=== PATIENT | female | born 1930 | race Caucasian/White ===

== ENCOUNTER 2016-05-22 16:04 | Emergency (ER) | payer MEDICARE, OTHER ==
[2016-05-22] MEDS ORDERED: ASPIRIN 81 MG TABLET, CHEWABLE PO ONE (16:44)
--- NOTE | 2016-05-22 16:56 | ER Document Report ---
ED Medical Screen (RME) - General Chief Complaint: Chest Pain Stated Complaint: CHEST PAIN Mode of Arrival: Ambulatory Information source: Patient Notes: 86-year-old female presents to the emergency department complaining of bilateral upper abdomen/lower chest pain since yesterday. Reports has tried antacid medication at home without improvement. Reports associated mild nausea without fever, vomiting, or shortness of breath. I have greeted and performed a rapid initial assessment of this patient. A comprehensive ED assessment and evaluation of the patient, analysis of test results and completion of the medical decision making process will be conducted by additional ED providers. TRAVEL OUTSIDE OF THE [place] IN LAST 30 DAYS: No - Related Data Allergies/Adverse Reactions: No Known Allergies Allergy (Verified 05/22/16 16:41) Past Medical History - Social History Chew tobacco use (# tins/day): No Frequency of alcohol use: None Drug Abuse: None - Past Medical History Cardiac Medical History: Reports: Hx Coronary Artery Disease, Hx Hypercholesterolemia, Hx Hypertension Denies: Hx Heart Attack Pulmonary Medical History: Reports: Hx Asthma, Hx Pneumonia Denies: Hx Bronchitis, Hx COPD Neurological Medical History: Denies: Hx Cerebrovascular Accident, Hx Seizures Renal/ Medical History: Denies: Hx Peritoneal Dialysis GI Medical History: Reports: Hx Gastroesophageal Reflux Disease Musculoskeltal Medical History: Reports Hx Arthritis Past Surgical History: Reports: Hx Appendectomy, Hx Cardiac Catheterization - stent x2, Hx Coronary Stent - 2006 AND 2008, Hx Hysterectomy - Immunizations Hx Diphtheria, Pertussis, Tetanus Vaccination: Yes - 2011 Physical Exam - Vital signs Vitals: Temp Pulse Resp BP Pulse Ox 98.0 F 61 18 156/76 H 94 05/22/16 16:38 05/22/16 16:38 05/22/16 16:38 05/22/16 16:38 05/22/16 16:38 - General General appearance: Appears well, Alert In distress: None - Respiratory Respiratory status: No respiratory distress Breath sounds: Normal - Cardiovascular Rhythm: Regular Pulses: Normal: Radial Normal capillary refill: Yes Course - Vital Signs Vital signs: Temp Pulse Resp BP Pulse Ox 98.0 F 61 18 156/76 H 94 05/22/16 16:38 05/22/16 16:38 05/22/16 16:38 05/22/16 16:38 05/22/16 16:38
[2016-05-22 18:34] LABS: ABSOLUTE BASOPHILS # (AUTO) 0.1 10^3/uL (0.0-0.2); ABSOLUTE EOSINOPHILS # (AUTO) 0.3 10^3/uL (0.0-0.6); ABSOLUTE LYMPHOCYTES (AUTO) 3.3 10^3/uL (0.5-4.7); BASOPHILS % (AUTO) 0.7 % (0-2); EOSINOPHILS % (AUTO) 3.9 % (0-6); HEMATOCRIT 40.1 % (36.0-47.0); HEMOGLOBIN 13.5 g/dL (12.0-15.5); HGB HCT DIFFERENCE 0.4; LYMPHOCYTES % (AUTO) 38.2 % (13-45); MEAN CORPUSCULAR HEMOGLOBIN 30.2 pg (27.0-33.4); MEAN CORPUSCULAR HGB CONC 33.6 g/dL (32.0-36.0); MEAN CORPUSCULAR VOLUME 90 fl (80-97); MONOCYTES % (AUTO) 11.4 % (3-13); RED BLOOD COUNT 4.46 10^6/uL (3.72-5.28); RED CELL DISTRIBUTION WIDTH 13.7 % (11.5-14.0); SEGMENTED NEUTROPHILS % (AUTO) 45.8 % (42-78); WHITE BLOOD COUNT 8.7 10^3/uL (4.0-10.5)
[2016-05-22 18:45] LABS: APPEARANCE,URINE CLEAR; BILIRUBIN,URINE NEGATIVE (NEGATIVE); GLUCOSE, URINE NEGATIVE (NEGATIVE); KETONES,URINE NEGATIVE (NEGATIVE); LEUKOCYTE ESTERASE,URINE LARGE (NEGATIVE); NITRITE,URINE NEGATIVE (NEGATIVE); PROTEIN,URINE NEGATIVE (NEGATIVE); URINE SPECIFIC GRAVITY 1.005; UROBILINOGEN,URINE NEGATIVE mg/dL (<2.0)
[2016-05-22 18:59] LABS: ALANINE AMINOTRANSFERASE 38 U/L (9-52); ALBUMIN 4.7 g/dL (3.5-5.0); ALKALINE PHOSPHATASE 71 U/L (38-126); ANION GAP 12 (5-19); ASPARTATE AMINO TRANSFERASE 29 U/L (14-36); BILIRUBIN,TOTAL 0.5 mg/dL (0.2-1.3); BLOOD UREA NITROGEN 12 mg/dL (7-20); CALCIUM 10.2 mg/dL (8.4-10.2); CARBON DIOXIDE 30 mmol/L (22-30); CHLORIDE 101 mmol/L (98-107); CREATINE KINASE 76 U/L (30-135); CREATININE RESULT 0.76 mg/dL (0.52-1.25); GLUCOSE 97 mg/dL (75-110); LIPASE 81.7 U/L (23-300); POTASSIUM 4.2 mmol/L (3.6-5.0); SODIUM 142.7 mmol/L (137-145); TOTAL PROTEIN 7.8 g/dL (6.3-8.2)
[2016-05-22 19:12] LABS: TROPONIN I < 0.012 ng/mL
--- NOTE | 2016-05-22 20:02 | EKG REPORT ---
SEVERITY:- ABNORMAL ECG - SINUS RHYTHM FIRST DEGREE AV BLOCK LEFT VENTRICULAR HYPERTROPHY ANTERIOR Q WAVES, POSSIBLY DUE TO LVH : Confirmed by: Elier Beard 22-May-2016 20:02:04
[2016-05-23] MEDS ORDERED: MAG HYDROX/AL HYDROX/SIMETH SUSP 30 ML UDCUP PO ONE (00:35)
[2016-05-23] MEDS ORDERED: LIDOCAINE 2% VISCOUS SOLN 20 ML UDCUP PO ONE (00:35)
[2016-05-23] MEDS ORDERED: METOCLOPRAMIDE HCL ORAL SOLN 10 MG/10 ML UDCUP PO ONE (00:35)
--- NOTE | 2016-05-23 01:55 | ER Document Report ---
ED General - General Chief Complaint: Chest Pain Stated Complaint: CHEST PAIN Mode of Arrival: Ambulatory Notes: Patient is an 86-year-old female with past medical history of hypertension and a prior appendectomy who presents complaining of chest pain and intermittent epigastric abdominal pain. Pain in her chest is described as a burning, pressure-like sensation. Unchanged since onset. Nothing improves or worsens her pain. States she's had similar symptoms in the past with reflux but states that this is more intense than normal. She tried taking Rolaids at home with moderate improvement of her pain. Nothing worsens the pain. She has not seen her primary care physician regarding today's concerns. She denies any associated nausea, vomiting, diaphoresis, shortness of breath, or syncope. She denies any prior history of aortic dissection, aortic aneurysm, pulmonary embolus, or DVT. TRAVEL OUTSIDE OF THE [place] IN LAST 30 DAYS: No - Related Data Allergies/Adverse Reactions: No Known Allergies Allergy (Verified 05/22/16 16:41) Past Medical History - General Information source: Patient - Social History Smoking Status: Never Smoker Chew tobacco use (# tins/day): No Frequency of alcohol use: None Drug Abuse: None Lives with: Family Family History: Reviewed & Not Pertinent Patient has suicidal ideation: No Patient has homicidal ideation: No - Past Medical History Cardiac Medical History: Reports: Hx Coronary Artery Disease, Hx Hypercholesterolemia, Hx Hypertension Denies: Hx Heart Attack Pulmonary Medical History: Reports: Hx Asthma, Hx Pneumonia Denies: Hx Bronchitis, Hx COPD Neurological Medical History: Denies: Hx Cerebrovascular Accident, Hx Seizures Renal/ Medical History: Denies: Hx Peritoneal Dialysis GI Medical History: Reports: Hx Gastroesophageal Reflux Disease Musculoskeltal Medical History: Reports Hx Arthritis Past Surgical History: Reports: Hx Appendectomy, Hx Cardiac Catheterization - stent x2, Hx Coronary Stent - 2006 AND 2008, Hx Hysterectomy - Immunizations Hx Diphtheria, Pertussis, Tetanus Vaccination: Yes - 2011 Hx Pneumococcal Vaccination: 04/02/11 Review of Systems - Review of Systems Notes: Constitutional: Negative for fever. HENT: Negative for sore throat. Eyes: Negative for visual changes. Cardiovascular: Positive for chest pain. Respiratory: Negative for shortness of breath. Gastrointestinal: Negative for abdominal pain, vomiting or diarrhea. Genitourinary: Negative for dysuria. Musculoskeletal: Negative for back pain. Skin: Negative for rash. Neurological: Negative for headaches, weakness or numbness. 10 point ROS negative except as marked above and in HPI. Physical Exam - Vital signs Vitals: Temp Pulse Resp BP Pulse Ox 98.0 F 61 18 156/76 H 94 05/22/16 16:38 05/22/16 16:38 05/22/16 16:38 05/22/16 16:38 05/22/16 16:38 Interpretation: Hypertensive Notes: PHYSICAL EXAMINATION: GENERAL: Well-appearing, well-nourished and in no acute distress. HEAD: Atraumatic, normocephalic. EYES: Pupils equal round and reactive to light, extraocular movements intact, sclera anicteric, conjunctiva are normal. ENT: nares patent, oropharynx clear without exudates. Moist mucous membranes. NECK: Normal range of motion, supple without lymphadenopathy LUNGS: Breath sounds clear to auscultation bilaterally and equal. No wheezes rales or rhonchi. HEART: Regular rate and rhythm without murmurs ABDOMEN: Soft, nontender, normoactive bowel sounds. No guarding, no rebound. No masses appreciated. EXTREMITIES: Normal range of motion, no pitting or edema. No cyanosis. NEUROLOGICAL: No focal neurological deficits. Moves all extremities spontaneously and on command. PSYCH: Normal mood, normal affect. SKIN: Warm, Dry, normal turgor, no rashes or lesions noted. Course - Re-evaluation Re-evalutation: 05/23/16 01:49 Presentation of chest pain in an otherwise well appearing patient. Low clinical suspicion for ACS given clinical history, exam, EKG without ST elevations or depressions, and negative troponin 2. HEART score less than or equal to 3. PE also seems unlikely given clinical history, absence of tachycardia or dyspnea. Will score 0. CXR without evidence of pneumothorax or pneumonia. No widened mediastinum. Aortic dissection also seems unlikely given history, symmetric pulses, CXR, and vitals. A bedside ultrasound of the right upper quadrant shows a normal gallbladder without any wall thickening, pericholecystic fluid or gallstones. Her laboratories do not suggest acute pancreatitis area and her clinical history is not consistent with an acute mesenteric ischemia and she does not have any major risk factors for this diagnosis beyond her age.At this time will discharge with return precautions and follow-up recommendations. Verbal discharge instructions given a the bedside and opportunity for questions given. Medication warnings reviewed. Patient is in agreement with this plan and has verbalized understanding of return precautions and the need for primary care follow-up in the next 24-72 hours. - Vital Signs Vital signs: Temp Pulse Resp BP Pulse Ox 97.7 F 62 15 144/65 H 96 05/22/16 22:59 05/22/16 22:59 05/23/16 02:00 05/23/16 00:01 05/23/16 02:00 - Laboratory Result Diagrams: 05/22/16 18:05 05/22/16 18:05 Laboratory results interpreted by me: 05/22/16 18:05 Ur Leukocyte Esterase LARGE H - Diagnostic Test Radiology reviewed: Image reviewed, Reports reviewed Radiology results interpreted by me: 05/23/16 01:51 Chest x-ray: No acute infiltrate. - EKG Interpretation by Me Additional EKG results interpreted by me: 05/23/16 01:55 Normal sinus rhythm. No ST elevations or depressions. Rate 67. QTC is 444. Discharge - Discharge Clinical Impression: Chest pain Qualifiers: Chest pain type: unspecified Qualified Code(s): R07.9 - Chest pain, unspecified Condition: Good Disposition: HOME, SELF-CARE Additional Instructions: You were seen today for chest pain. The exact cause of your pain is unclear. However, based on your cardiac enzyme testing, chest x-ray, and EKG it does not appear that it is from an immediately life-threatening cause at this time. Although your testing here is normal is critical that you follow-up with your primary care physician for continued evaluation of this chest pain and possible stress testing. I recommended you see your physician within the next 24-48 hours to be evaluated for consideration of a stress test. Please return to emergency department immediately if you have worsening of your chest pain, shortness of breath, vomiting, become unable to exert yourself due to pain or difficulty breathing, you pass out, or have any pain that radiates into your arms, jaw, or back. Please also return if you have any additional symptoms that are concerning to you. Referrals: HUY CHOUDHURY MD [Primary Care Provider] - Follow up tomorrow
[2016-05-23 02:19] VITALS: BP 149/78
== END 2016-05-23 02:19 | disposition home or self-care (01) ==
LOC: ER 16:04
DX: R07.9 Chest pain, unspecified (principal); I10 Essential (primary) hypertension; R10.13 Epigastric pain
CPT/HCPCS: 93005; 99285; 36415; 82553; 82550; 83690; 85025; 80053; 81001; 84484; 71020; 93010; A9270 ×2; J3490

== ENCOUNTER 2017-06-05 08:58 | Emergency (ER) | payer MEDICARE, OTHER ==
--- NOTE | 2017-06-05 10:01 | RADIOLOGY REPORT (SQ) ---
EXAM DESCRIPTION: CT HEAD WITHOUT COMPLETED DATE/TIME: 06/05/2017 9:53 am REASON FOR STUDY: fall , head injury COMPARISON: None. TECHNIQUE: Axial images acquired through the brain without intravenous contrast. Images reviewed wi th bone, brain and subdural windows. Images stored on PACS. All CT scanners at this facility use dose modulation, iterative reconstruction, and/or weight based d osing when appropriate to reduce radiation dose to as low as reasonably achievable (ALARA). [facility]: Dose Right [facility]: CareDose [facility]: Dose Right [facility]: Teradose 4D [facility]: [employer] [facility] RADIATION DOSE: CT Rad equipment meets quality standard of care and radiation dose reduction techniq ues were employed. CTDIvol: 64.6 mGy. DLP: 1034 mGy-cm. mGy. LIMITATIONS: None. FINDINGS: VENTRICLES: Prominent. CEREBRUM: No masses. No hemorrhage. No midline shift. 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 Areas of low density in the white matter most likely due to chronic micro-vascular ischemi c change. No evidence for acute infarction. CEREBELLUM: No masses. No hemorrhage. No alteration of density. No evidence for acute infarction. EXTRAAXIAL SPACES: Mild age-related involutional change. No fluid collections. No masses. ORBITS AND GLOBE: No intra- or extraconal masses. Normal contour of globe without masses. CALVARIUM: No fracture. PARANASAL SINUSES: No fluid or mucosal thickening. SOFT TISSUES: No mass or hematoma. OTHER: No other significant finding. IMPRESSION: No acute abnormality in the brain. EVIDENCE OF ACUTE STROKE: NO. TECHNICAL DOCUMENTATION: JOB ID: [id number] Quality ID # [id number]: Final reports with documentation of one or more dose reduction techniques (e.g., Au tomated exposure control, adjustment of the mA and/or kV according to patient size, use of iterative reconstruction technique) 2010 [employer]- All Rights Reserved Reading location - IP/workstation name: [facility]-[email or web address]
--- NOTE | 2017-06-05 10:12 | RADIOLOGY REPORT (SQ) ---
EXAM DESCRIPTION: CT CERVICAL SPINE WITHOUT COMPLETED DATE/TIME: 06/05/2017 9:56 am REASON FOR STUDY: fall , head injury COMPARISON: None. TECHNIQUE: Axial images acquired through the cervical spine without intravenous contrast. Images re viewed with lung, soft tissue and bone windows. Reconstructed coronal and sagittal MPR images review ed. Images stored on PACS. All CT scanners at this facility use dose modulation, iterative reconstruction, and/or weight based d osing when appropriate to reduce radiation dose to as low as reasonably achievable (ALARA). [facility]: Dose Right [facility]: CareDose [facility]: Dose Right [facility]: Teradose 4D [facility]: [employer] RADIATION DOSE: CT Rad equipment meets quality standard of care and radiation dose reduction techniq ues were employed. CTDIvol: 14.1 mGy. DLP: 278 mGy-cm. mGy. LIMITATIONS: None. FINDINGS: ALIGNMENT: Anatomic. MINERALIZATION: Normal. VERTEBRAL BODIES: No fractures or dislocation. 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 DISCS: Severe degenerative disc disease extending from C3 through C7. Mild spinal stenosis at C5-6 w ith moderate bilateral neural foraminal narrowing. Mild spinal stenosis at C6-7 with moderate bilate ral neural foraminal narrowing. FACETS, LATERAL MASSES, POSTERIOR ELEMENTS: No fractures. No dislocation. No acute findings. Degen erative changes involving some of the facet joints which range from mild to severe. HARDWARE: None in the spine. VISUALIZED RIBS: No fractures. LUNG APICES AND SOFT TISSUES: No significant or acute findings. OTHER: No other significant finding. IMPRESSION: Severe degenerative changes without evidence of fracture. TECHNICAL DOCUMENTATION: JOB ID: [id number] Quality ID # [id number]: Final reports with documentation of one or more dose reduction techniques (e.g., Au tomated exposure control, adjustment of the mA and/or kV according to patient size, use of iterative reconstruction technique) 2010 [employer]- All Rights Reserved Reading location - IP/workstation name: [email or web address]
--- NOTE | 2017-06-05 10:26 | ER Document Report ---
ED General - General Chief Complaint: Fall Injury Stated Complaint: FALL/HEAD PAIN Time Seen by Provider: 06/05/17 09:16 Mode of Arrival: Ambulatory Information source: Patient, Relative Notes: 87-year-old female who is not on any blood thinners presents after mechanical fall striking the back of her head. Patient denies any LOC, she denies any neurological deficits, she denies any weakness loss of bowel or bladder function. Patient states that she tripped and that she did not pass out. Patient does admit to mild neck pain but notes chronic neck pain as well TRAVEL OUTSIDE OF THE [place] IN LAST 30 DAYS: No - HPI Onset: Just prior to arrival Onset/Duration: Sudden Quality of pain: Achy Severity: Mild Pain Level: 1 Associated symptoms: Body/muscle aches, Headache Exacerbated by: Movement Relieved by: Denies Similar symptoms previously: No Recently seen / treated by doctor: No - Related Data Allergies/Adverse Reactions: No Known Allergies Allergy (Verified 06/05/17 08:59) Past Medical History - Social History Smoking Status: Never Smoker Cigarette use (# per day): No Chew tobacco use (# tins/day): No Smoking Education Provided: No Family History: Reviewed & Not Pertinent Patient has suicidal ideation: No Patient has homicidal ideation: No - Past Medical History Cardiac Medical History: Reports: Hx Coronary Artery Disease, Hx Hypercholesterolemia, Hx Hypertension Denies: Hx Heart Attack Pulmonary Medical History: Reports: Hx Asthma, Hx Pneumonia Denies: Hx Bronchitis, Hx COPD Neurological Medical History: Denies: Hx Cerebrovascular Accident, Hx Seizures Renal/ Medical History: Denies: Hx Peritoneal Dialysis GI Medical History: Reports: Hx Gastroesophageal Reflux Disease Musculoskeltal Medical History: Reports Hx Arthritis Psychiatric Medical History: Reports: Hx Depression Past Surgical History: Reports: Hx Appendectomy, Hx Cardiac Catheterization - stent x2, Hx Coronary Stent - 2006 AND 2008, Hx Hysterectomy - Immunizations Hx Diphtheria, Pertussis, Tetanus Vaccination: Yes - 2011 Hx Pneumococcal Vaccination: 04/02/11 Review of Systems - Review of Systems Notes: REVIEW OF SYSTEMS: CONSTITUTIONAL : Denies fever, chills, or sweats. Denies recent illness. EENT: Denies eye, ear, throat, or mouth pain or symptoms. Denies nasal or sinus congestion or discharge. Denies throat, tongue, or mouth swelling or difficulty swallowing. CARDIOVASCULAR: Denies chest pain. Denies palpitations or racing or irregular heart beat. Denies ankle edema. RESPIRATORY: Denies cough, cold, or chest congestion. Denies shortness of breath, difficulty breathing, or wheezing. GASTROINTESTINAL: Denies abdominal pain or distention. Denies nausea, vomiting , or diarrhea. Denies blood in vomitus, stools, or per rectum. Denies black, tarry stools. Denies constipation. GENITOURINARY: Denies difficulty urinating, painful urination, burning, frequency, blood in urine, or discharge. FEMALE GENITOURINARY: Denies vaginal bleeding, heavy or abnormal periods, irregular periods. Denies vaginal discharge or odor. MUSCULOSKELETAL: admits to neck pain SKIN: Denies rash, lesions or sores. HEMATOLOGIC : Denies easy bruising or bleeding. LYMPHATIC: Denies swollen, enlarged glands. NEUROLOGICAL: Denies confusion or altered mental status. Denies passing out or loss of consciousness. Denies dizziness or lightheadedness. Denies headache. Denies weakness or paralysis or loss of use of either side. Denies problems with gait or speech. Denies sensory loss, numbness, or tingling. Denies seizures. PSYCHIATRIC: Denies anxiety or stress. Denies depression, suicidal ideation, or homicidal ideation. ALL OTHER SYSTEMS REVIEWED AND NEGATIVE. PHYSICAL EXAMINATION: GENERAL: Well-appearing, well-nourished and in no acute distress. HEAD: Atraumatic, normocephalic. no hematoma noted EYES: Pupils equal round and reactive to light, extraocular movements intact, conjunctiva are normal. ENT: Nares patent, oropharynx clear without exudates. Moist mucous membranes. NECK: c collar placed LUNGS: Breath sounds clear to auscultation bilaterally and equal. No wheezes rales or rhonchi. HEART: Regular rate and rhythm without murmurs ABDOMEN: Soft, nontender, nondistended abdomen. No guarding, no rebound. No masses appreciated. Female : deferred Musculoskeletal: Normal range of motion, no pitting or edema. No cyanosis. NEUROLOGICAL: Cranial nerves grossly intact. Normal speech, normal gait. Normal sensory, motor exams PSYCH: Normal mood, normal affect. SKIN: Warm, Dry, normal turgor, no rashes or lesions noted. Dictation was performed using [employer] voice recognition software Physical Exam - Vital signs Vitals: Temp Pulse Resp BP Pulse Ox 98.5 F 65 14 150/68 H 96 06/05/17 09:03 06/05/17 09:03 06/05/17 09:03 06/05/17 09:03 06/05/17 09:03 Course - Re-evaluation Re-evalutation: 06/05/17 15:07 CT was emergently ordered, no acute abnormality was noted, patient c-collar was removed, I did explain that degenerative changes to family and patient. Overall she looks well is in no distress is neurologically intact has no other significant abnormalities and is stable for discharge After performing a Medical Screening Examination, I estimate there is LOW risk for INCRANIAL HEMORRHAGE, or ISCHEMIC STROKE thus I consider the discharge disposition reasonable. I have reevaluated this patient multiple times and no significant life threatening changes are noted. The patient and I have discussed the diagnosis and risks, and we agree with discharging home with close follow-up with the understanding that symptoms and presentations can change. We also discussed returning to the Emergency Department immediately if new or worsening symptoms occur. We have discussed the symptoms which are most concerning (e.g., changing or worsening symptoms, new numbness or weakness, vomiting, fever) that necessitate immediate return. - Vital Signs Vital signs: Temp Pulse Resp BP Pulse Ox 98.6 F 69 16 149/66 H 97 06/05/17 10:47 06/05/17 10:47 06/05/17 10:47 06/05/17 10:47 06/05/17 10:47 - Diagnostic Test Radiology reviewed: Image reviewed, Reports reviewed - Degenerative changes noted on cervical spine Discharge - Discharge Clinical Impression: Cervical pain Head injury due to trauma Qualifiers: Encounter type: initial encounter Qualified Code(s): S09.90XA - Unspecified injury of head, initial encounter Condition: Stable Disposition: HOME, SELF-CARE Instructions: Head Injury Precautions ([facility]) Referrals: HUY CHOUDHURY MD [Primary Care Provider] - Follow up tomorrow
[2017-06-05 10:48] VITALS: BP 149/66
== END 2017-06-05 10:48 | disposition home or self-care (01) ==
LOC: ER 08:58
DX: S09.90XA Unspecified injury of head, initial encounter (principal); W19.XXXA Unspecified fall, initial encounter; M47.9 Spondylosis, unspecified; M54.2 Cervicalgia; G89.29 Other chronic pain; I25.10 Atherosclerotic heart disease of native coronary artery without angina pectoris; I10 Essential (primary) hypertension; J45.909 Unspecified asthma, uncomplicated
CPT/HCPCS: 99283; 70450; 72125; L0120

== ENCOUNTER 2017-07-14 14:10 | Emergency (ER) | payer MEDICARE, OTHER ==
--- NOTE | 2017-07-14 15:07 | ER Document Report ---
ED Medical Screen (RME) - General TRAVEL OUTSIDE OF THE [place] IN LAST 30 DAYS: No <TAY SHARPE - Last Filed: 07/14/17 15:06> <GAYLA WISE V - Last Filed: 07/14/17 18:09> - General Chief Complaint: Fall Stated Complaint: FALL NECK PAIN Time Seen by Provider: 07/14/17 15:00 Notes: This 87-year-old female patient comes emergency room complaining of having fallen 3 days ago while making a bed helping her daughter. She reports that she hurt her neck and her right shoulder. When asked what prompted her to come today, she states it was hurting really bad. She later stated it was hurting really bad the day it occurred. She was seen here almost 6 weeks ago after a fall complaining of neck pain. She does not remember that event. She apparently does have a history of chronic neck pain. She complained of severe pain when I attempted to extend her neck. I have greeted and performed a rapid initial assessment of this patient. A comprehensive ED assessment and evaluation of the patient, analysis of test results and completion of the medical decision making process will be conducted by additional ED providers. (TAY SHARPE) - Related Data Allergies/Adverse Reactions: No Known Allergies Allergy (Verified 06/05/17 08:59) Past Medical History - Social History Chew tobacco use (# tins/day): No Frequency of alcohol use: None Drug Abuse: None - Past Medical History Cardiac Medical History: Reports: Hx Coronary Artery Disease, Hx Hypercholesterolemia, Hx Hypertension Denies: Hx Heart Attack Pulmonary Medical History: Reports: Hx Asthma, Hx Pneumonia Denies: Hx Bronchitis, Hx COPD Neurological Medical History: Denies: Hx Cerebrovascular Accident, Hx Seizures Renal/ Medical History: Denies: Hx Peritoneal Dialysis GI Medical History: Reports: Hx Gastroesophageal Reflux Disease Musculoskeltal Medical History: Reports Hx Arthritis Psychiatric Medical History: Reports: Hx Depression Past Surgical History: Reports: Hx Appendectomy, Hx Cardiac Catheterization - stent x2, Hx Coronary Stent - 2005 AND 2007, Hx Hysterectomy - Immunizations Hx Diphtheria, Pertussis, Tetanus Vaccination: Yes - 2011 <TAY SHARPE - Last Filed: 07/14/17 15:06> - General Information source: Patient <GAYLA WISE V - Last Filed: 07/14/17 18:09> Review of Systems <TAY SHARPE - Last Filed: 07/14/17 15:06> <GAYLA WISE V - Last Filed: 07/14/17 18:09> - Review of Systems Notes: REVIEW OF SYSTEMS: CONSTITUTIONAL: -fevers, -chills EENT: -eye pain, -difficulty swallowing, -nasal congestion CARDIOVASCULAR: -chest pain, -syncope. RESPIRATORY: -cough, -SOB GASTROINTESTINAL: -abdominal pain, -nausea, -vomiting, -diarrhea GENITOURINARY: -dysuria, -hematuria MUSCULOSKELETAL: -back pain, +neck pain, + shoulder pain SKIN: Chest wall rash HEMATOLOGIC: -easy bruising or bleeding. LYMPHATIC: -swollen, enlarged glands. NEUROLOGICAL: -altered mental status or loss of consciousness, -headache, - neurologic symptoms PSYCHIATRIC: -anxiety, -depression. ALL OTHER SYSTEMS REVIEWED AND NEGATIVE. (GAYLA WISE V) Physical Exam <TAY SHARPE - Last Filed: 07/14/17 15:06> <GAYLA WISE V - Last Filed: 07/14/17 18:09> - Vital signs Vitals: Temp Pulse Resp BP Pulse Ox 98.6 F 83 20 145/73 H 95 07/14/17 14:23 07/14/17 14:23 07/14/17 14:23 07/14/17 14:23 07/14/17 14:23 - Notes Notes: Reviewed vital signs and nursing note as charted by RN. CONSTITUTIONAL: Alert and oriented and responds appropriately to questions HEAD: Normocephalic; atraumatic EYES: PERRL; Conjunctivae clear, sclerae non-icteric ENT: normal nose; no rhinorrhea; moist mucous membranes; pharynx without lesions noted NECK: Supple without meningismus; mild tenderness to palpation in paraspinal musculature of her cervical spine as well as right trapezius CARD: Regular rate and rhythm; no murmurs, no clicks, no rubs, no gallops; symmetric distal pulses RESP: Normal chest excursion without splinting or tachypnea; breath sounds clear and equal bilaterally ABD/GI: Normal bowel sounds; non-distended; soft, BACK: The back appears normal and is non-tender to palpation EXT: Normal ROM in all joints; non-tender to palpation; no cyanosis, no effusions, no edema SKIN: Patient has 2 separate patches localized to the anterior chest wall, patches are consistent with actinic keratosis, no evidence of cellulitis NEURO: Cranial nerves 3-12 intact. Motor strength 5/5 bilaterally. Sensation intact to touch bilaterally. No pronator drift. Finger to nose intact bilaterally PSYCH: The patient's mood and manner are appropriate. Grooming and personal hygiene are appropriate. (GAYLA WISE V) Course <TAY SHARPE - Last Filed: 07/14/17 15:06> <GAYLA WISE V - Last Filed: 07/14/17 18:09> - Re-evaluation Re-evalutation: Patient presented for evaluation of mechanical fall 3 days ago as well as closed head injury Patient complains of right neck pain as well as shoulder pain Differential diagnoses includes intracranial hemorrhage, subdural hematoma, cervical spine fracture, shoulder fracture or sprain We will obtain CT of her brain, CT cervical spine as well as right shoulder film We will give patient [place] for pain Reassess Reassessment [address] scan of her brain as well as cervical spine did not reveal any acute fractures or intracranial injuries Right shoulder film without any fracture or dislocation Pain is well controlled with [place] Discussed results of imaging and plan of disposition with patient and family Patient also complained of mild rash localized to the anterior chest wall, does not look like cellulitis but appears to be a like actinic keratosis We will start patient on triamcinolone, follow-up with dermatology if her symptoms are not improving for possible biopsy to rule out malignancy (GAYLA WISE V) - Vital Signs Vital signs: Temp Pulse Resp BP Pulse Ox 98.6 F 83 20 145/73 H 95 07/14/17 14:23 07/14/17 14:23 07/14/17 14:23 07/14/17 14:23 07/14/17 14:23 Doctor's Discharge <TAY SHARPE - Last Filed: 07/14/17 15:06> <GAYLA WISE V - Last Filed: 07/14/17 18:09> - Discharge Clinical Impression: Fall, Actinic keratitis, Neck sprain, Sprain of shoulder, right Condition: Stable Disposition: HOME, SELF-CARE Instructions: Neck Injury (Cervical Strain) ([facility]), Shoulder Injury ([facility]) Additional Instructions: You have been diagnosed with neck sprain as well as contusion of the shoulder Please use triamcinolone cream for your symptoms Please follow-up with dermatology if your rash is not improving Otherwise follow-up with your primary care doctor for reassessment of your symptoms Come back if you have worsening headache, nausea vomiting, chest pain or shortness of breath Prescriptions: Hydrocodone/Acetaminophen [[place] 5-325 mg Tablet] 1 tab PO Q6 #12 tablet Methocarbamol [Robaxin 750 mg Tablet] 750 mg PO ASDIR PRN #40 tablet PRN Reason: Triamcinolone 10 gm MC DAILY 10 Days powder Referrals: ARNOLD BAILEY MD [Primary Care Provider] - Follow up in 1 week
--- NOTE | 2017-07-14 15:34 | RADIOLOGY REPORT (SQ) ---
EXAM DESCRIPTION: CT CERVICAL SPINE WITHOUT COMPLETED DATE/TIME: 07/14/2017 3:22 pm REASON FOR STUDY: fall, neck pain, unable to extend his neck at all COMPARISON: 06/05/2017 TECHNIQUE: Axial images acquired through the cervical spine without intravenous contrast. Images re viewed with lung, soft tissue and bone windows. Reconstructed coronal and sagittal MPR images review ed. Images stored on PACS. All CT scanners at this facility use dose modulation, iterative reconstruction, and/or weight based d osing when appropriate to reduce radiation dose to as low as reasonably achievable (ALARA). [facility]: Dose Right [facility]: CareDose [facility]: Dose Right [facility]: Teradose 4D [facility]: Smart [employer] RADIATION DOSE: CT Rad equipment meets quality standard of care and radiation dose reduction techniq ues were employed. CTDIvol: 14.7 mGy. DLP: 292 mGy-cm. mGy. LIMITATIONS: None. FINDINGS: ALIGNMENT: Anatomic. MINERALIZATION: Normal. VERTEBRAL BODIES: No fractures or dislocation. DISCS: Multilevel disc space narrowing with osteophytes. FACETS, LATERAL MASSES, POSTERIOR ELEMENTS: Facet arthropathy. No fractures. No dislocation. No ac manzanita findings. HARDWARE: None in the spine. VISUALIZED RIBS: No fractures. LUNG APICES AND SOFT TISSUES: No significant or acute findings. OTHER: No other significant finding. IMPRESSION: CHRONIC DEGENERATIVE CHANGES. NO ACUTE FINDINGS. TECHNICAL DOCUMENTATION: JOB ID: [id number] Quality ID # [id number]: Final reports with documentation of one or more dose reduction techniques (e.g., Au tomated exposure control, adjustment of the mA and/or kV according to patient size, use of iterative reconstruction technique) 2010 [employer]- All Rights Reserved Reading location - IP/workstation name: [email or web address]
--- NOTE | 2017-07-14 15:47 | RADIOLOGY REPORT (SQ) ---
EXAM DESCRIPTION: SHOULDER RIGHT 2 OR MORE VIEWS COMPLETED DATE/TIME: 07/14/2017 3:36 pm REASON FOR STUDY: Fall, right shoulder pain COMPARISON: None. NUMBER OF VIEWS: Three views. TECHNIQUE: Internal rotation, external rotation, and Y view images acquired of the right shoulder. LIMITATIONS: None. FINDINGS: MINERALIZATION: Normal. BONES: No acute fracture or dislocation. No worrisome bone lesions. JOINTS: Moderate acromioclavicular arthrosis. Mild glenohumeral arthrosis. VISUALIZED LUNGS AND RIBS: No pneumothorax. No rib fracture. SOFT TISSUES: No radiopaque foreign body. OTHER: No other significant finding. IMPRESSION: Degenerative changes without evidence of acute injury. TECHNICAL DOCUMENTATION: JOB ID: [id number] [employer]- All Rights Reserved Reading location - IP/workstation name: [email or web address]
--- NOTE | 2017-07-14 15:51 | RADIOLOGY REPORT (SQ) ---
EXAM DESCRIPTION: CT HEAD WITHOUT COMPLETED DATE/TIME: 07/14/2017 3:38 pm REASON FOR STUDY: trauma COMPARISON: 06/05/2017 TECHNIQUE: Axial images acquired through the brain without intravenous contrast. Images reviewed wi th bone, brain and subdural windows. Additional sagittal and coronal reconstructions were generated. Images stored on PACS. All CT scanners at this facility use dose modulation, iterative reconstruction, and/or weight based d osing when appropriate to reduce radiation dose to as low as reasonably achievable (ALARA). [facility]: Dose Right [facility]: CareDose [facility]: Dose Right [facility]: Teradose 4D [facility]: [employer] RADIATION DOSE: CT Rad equipment meets quality standard of care and radiation dose reduction techniq ues were employed. CTDIvol: 53.2 mGy. DLP: 1017 mGy-cm. mGy. LIMITATIONS: None. FINDINGS: VENTRICLES: Prominent. CEREBRUM: No masses. No hemorrhage. No midline shift. 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 Areas of low density in the white matter most likely due to chronic micro-v ascular ischemic change. No evidence for acute infarction. CEREBELLUM: No masses. No hemorrhage. No alteration of density. No evidence for acute infarction. EXTRAAXIAL SPACES: Mild age-related involutional change. No fluid collections. No masses. ORBITS AND GLOBE: No intra- or extraconal masses. Normal contour of globe without masses. CALVARIUM: No fracture. PARANASAL SINUSES: No fluid or mucosal thickening. SOFT TISSUES: No mass or hematoma. OTHER: No other significant finding. IMPRESSION: MILD CHRONIC CHANGES OF ATROPHY AND MICROVASCULAR ISCHEMIA. NO ACUTE PROCESS. EVIDENCE OF ACUTE STROKE: No TECHNICAL DOCUMENTATION: JOB ID: [id number] Quality ID # [id number]: Final reports with documentation of one or more dose reduction techniques (e.g., Au tomated exposure control, adjustment of the mA and/or kV according to patient size, use of iterative reconstruction technique) 2010 [employer]- All Rights Reserved Reading location - IP/workstation name: [email or web address]
[2017-07-14] MEDS ORDERED: HYDROCODONE/ACETAMINOPHEN 7.5-325 MG TABLET PO ONE (16:01)
[2017-07-14 18:40] VITALS: BP 143/70
== END 2017-07-14 18:40 | disposition home or self-care (01) ==
LOC: ER 14:10
DX: S13.9XXA Sprain of joints and ligaments of unspecified parts of neck, initial encounter (principal); S43.401A Unspecified sprain of right shoulder joint, initial encounter; S09.90XA Unspecified injury of head, initial encounter; H16.139 Photokeratitis, unspecified eye; W19.XXXA Unspecified fall, initial encounter
CPT/HCPCS: 99284; 73030; 70450; 72125; A9270

== ENCOUNTER 2017-09-06 10:36 | Emergency (ER) | payer MEDICARE, OTHER ==
[2017-09-06] MEDS ORDERED: DIPH/PERTUSS(ACELL)/TETANUS VAC/PF 0.5 ML SYR (>=10YO) IM ONE (11:19)
--- NOTE | 2017-09-06 11:20 | ER Document Report ---
ED Medical Screen (RME) - General TRAVEL OUTSIDE OF THE [place] IN LAST 30 DAYS: No <TASHA CONTRERASON - Last Filed: 09/06/17 13:09> <LUISAJOESPHHENRY - Last Filed: 09/06/17 21:40> - General Chief Complaint: Fall Stated Complaint: FALL/HEAD INJURY Time Seen by Provider: 09/06/17 11:14 Notes: Patient is an 87-year-old female who presents to the emergency department today with complaints of a fall. Patient denies any symptoms prior to her fall, stating she slipped on water in her kitchen falling backwards. Patient states she hit the back of her head on the ground. Patient does take aspirin daily. Patient complains of slight neck pain. Patient denies nausea, vomiting, numbness, tingling, weakness, chest pain, shortness of breath, abdominal pain. I have greeted and performed a rapid initial assessment of this patient. A comprehensive ED assessment and evaluation of the patient, analysis of test results, and completion of the medical decision making process will be conducted by additional ED providers. Review of systems: Constitutional: No symptoms reported EENT: Head injury Cardiovascular: Denies chest pain. Respiratory: Denies shortness of breath. Gastrointestinal: Denies nausea, vomiting, or abdominal pain. Genitourinary: No symptoms reported Musculoskeletal: Neck pain Skin: No symptoms reported Hematologic/Lymphatic: No symptoms reported Neurological/Psychological: Denies numbness, weakness, or tingling. Yes All other systems reviewed and negative PHYSICAL EXAM GENERAL: Alert, interacts well. No acute distress. HEAD: Normocephalic, occipital hematoma with overlying superficial abrasion, no laceration. EYES: Pupils equal, round, and reactive to light. Extraocular movements intact. ENT: Oral mucosa moist, tongue midline. NECK: Midline body tenderness with palpation, no step-offs or deformities, c- collar placed. Trachea midline. LUNGS: Clear to auscultation bilaterally, no wheezes, rales, or rhonchi. No respiratory distress. HEART: Regular rate and rhythm. No murmurs, gallops, or rubs. ABDOMEN: Soft, non-tender. Non-distended. Bowel sounds present in all 4 quadrants. No guarding, rigidity, or rebound. EXTREMITIES: Moves all 4 extremities spontaneously. No edema, radial and dorsalis pedis pulses 2/4 bilaterally. No cyanosis. NEUROLOGICAL: Alert and oriented x3. Normal speech. PSYCH: Normal affect, normal mood. SKIN: Warm, dry, normal turgor. See head exam. (LAURO CONTRERAS) - Related Data Allergies/Adverse Reactions: No Known Allergies Allergy (Verified 09/06/17 10:37) Past Medical History - Social History Chew tobacco use (# tins/day): No Frequency of alcohol use: None Drug Abuse: None - Past Medical History Cardiac Medical History: Reports: Hx Coronary Artery Disease, Hx Hypercholesterolemia, Hx Hypertension Denies: Hx Heart Attack Pulmonary Medical History: Reports: Hx Asthma, Hx Pneumonia Denies: Hx Bronchitis, Hx COPD Neurological Medical History: Denies: Hx Cerebrovascular Accident, Hx Seizures Renal/ Medical History: Denies: Hx Peritoneal Dialysis GI Medical History: Reports: Hx Gastroesophageal Reflux Disease Musculoskeltal Medical History: Reports Hx Arthritis Psychiatric Medical History: Reports: Hx Depression Past Surgical History: Reports: Hx Appendectomy, Hx Cardiac Catheterization - stent x2, Hx Coronary Stent - 2005 AND 2007, Hx Hysterectomy - Immunizations Hx Diphtheria, Pertussis, Tetanus Vaccination: Yes - 2011 <LAURO CONTRERAS - Last Filed: 09/06/17 13:09> - Vital signs Vitals: Temp Pulse Resp BP Pulse Ox 98.4 F 71 16 131/57 H 94 09/06/17 10:39 09/06/17 10:39 09/06/17 10:39 09/06/17 10:39 09/06/17 10:39 Course - Laboratory Result Diagrams: 09/06/17 11:27 09/06/17 11:27 <LAURO CONTRERAS - Last Filed: 09/06/17 13:09> - Laboratory Result Diagrams: 09/06/17 11:27 09/06/17 11:27 <HENRY BRICEÑO - Last Filed: 09/06/17 21:40> - Vital Signs Vital signs: Temp Pulse Resp BP Pulse Ox 97.4 F 60 16 130/74 H 93 09/06/17 13:16 09/06/17 13:16 09/06/17 13:16 09/06/17 13:16 09/06/17 13:16 Doctor's Discharge <LAURO CONTRERAS - Last Filed: 09/06/17 13:09> <HENRY BRICEÑO - Last Filed: 09/06/17 21:40> - Discharge Clinical Impression: Scalp hematoma Qualifiers: Encounter type: initial encounter Qualified Code(s): S00.03XA - Contusion of scalp, initial encounter Closed head injury Qualifiers: Encounter type: initial encounter Qualified Code(s): S09.90XA - Unspecified injury of head, initial encounter Disposition: HOME, SELF-CARE Instructions: Head Injury Precautions ([facility]), Scalp Hematoma ([facility]) Referrals: ARNOLD BAILEY MD [Primary Care Provider] - Follow up as needed Scribe Documentation - Scribe Written by Scribe:: Kevin Zhao, 09/06/2017 1119 acting as scribe for :: Cathi <LAURO CONTRERAS - Last Filed: 09/06/17 13:09>
[2017-09-06 11:39] LABS: ABSOLUTE EOSINOPHILS # (AUTO) 0.2 10^3/uL (0.0-0.6); ABSOLUTE LYMPHOCYTES (AUTO) 1.8 10^3/uL (0.5-4.7); ABSOLUTE MONOCYTES (AUTO) 0.5 10^3/uL (0.1-1.4); ABSOLUTE NEUT (AUTO) 3.6 10^3/uL (1.7-8.2); BASOPHILS % (AUTO) 0.7 % (0-2); EOSINOPHILS % (AUTO) 3.8 % (0-6); HEMATOCRIT 38.7 % (36.0-47.0); HEMOGLOBIN 12.9 g/dL (12.0-15.5); LYMPHOCYTES % (AUTO) 29.2 % (13-45); MEAN CORPUSCULAR HEMOGLOBIN 29.9 pg (27.0-33.4); MEAN CORPUSCULAR HGB CONC 33.3 g/dL (32.0-36.0); MEAN CORPUSCULAR VOLUME 90 fl (80-97); MONOCYTES % (AUTO) 8.2 % (3-13); PLATELET COUNT 241 10^3/uL (150-450); RED CELL DISTRIBUTION WIDTH 13.6 % (11.5-14.0); SEGMENTED NEUTROPHILS % (AUTO) 58.1 % (42-78); TOTAL CELLS COUNTED % (AUTO) 100 %; WHITE BLOOD COUNT 6.2 10^3/uL (4.0-10.5)
[2017-09-06 11:51] LABS: ANION GAP 10 (5-19); BLOOD UREA NITROGEN 12 mg/dL (7-20); CALCIUM 9.5 mg/dL (8.4-10.2); CARBON DIOXIDE 29 mmol/L (22-30); CHLORIDE 104 mmol/L (98-107); GLUCOSE 98 mg/dL (75-110); POTASSIUM 4.5 mmol/L (3.6-5.0); SODIUM 142.6 mmol/L (137-145)
[2017-09-06 11:52] LABS: INTERNATIONAL RATION (INR) 0.98; PARTIAL THROMBOPLASTIN TIME 31.7 SEC (23.5-35.8); PROTHROMBIN TIME 13.5 SEC (11.4-15.4)
--- NOTE | 2017-09-06 12:13 | RADIOLOGY REPORT (SQ) ---
EXAM DESCRIPTION: CT HEAD WITHOUT COMPLETED DATE/TIME: 09/06/2017 11:55 am REASON FOR STUDY: fall, hit head, on aspirin, neck pain COMPARISON: 07/14/2017 TECHNIQUE: Axial images acquired through the brain without intravenous contrast. Images reviewed wi th bone, brain and subdural windows. Additional sagittal and coronal reconstructions were generated. Images stored on PACS. All CT scanners at this facility use dose modulation, iterative reconstruction, and/or weight based d osing when appropriate to reduce radiation dose to as low as reasonably achievable (ALARA). [facility]: Dose Right [facility]: CareDose [facility]: Dose Right [facility]: Teradose 4D [facility]: Smart [employer] RADIATION DOSE: CT Rad equipment meets quality standard of care and radiation dose reduction techniq ues were employed. CTDIvol: 53.2 mGy. DLP: 1044 mGy-cm. mGy. LIMITATIONS: None. FINDINGS: VENTRICLES: Prominent. CEREBRUM: No masses. No hemorrhage. No midline shift. Areas of low density in the white matter mos t likely due to chronic micro-vascular ischemic change. No evidence for acute infarction. CEREBELLUM: No masses. No hemorrhage. No alteration of density. No evidence for acute infarction. EXTRAAXIAL SPACES: Mild age-related involutional change. No fluid collections. No masses. ORBITS AND GLOBE: No intra- or extraconal masses. Normal contour of globe without masses. CALVARIUM: No fracture. PARANASAL SINUSES: No fluid or mucosal thickening. SOFT TISSUES: Scalp hematoma is identified in the right occipital region. OTHER: No other significant finding. IMPRESSION: MILD CHRONIC CHANGES OF ATROPHY AND MICROVASCULAR ISCHEMIA. NO ACUTE intracranial findi ngs. Scalp hematoma in the right occipital region. Other findings as noted above EVIDENCE OF ACUTE STROKE: NO. TECHNICAL DOCUMENTATION: JOB ID: [id number] Quality ID # [id number]: Final reports with documentation of one or more dose reduction techniques (e.g., Au tomated exposure control, adjustment of the mA and/or kV according to patient size, use of iterative reconstruction technique) 2010 [employer]- All Rights Reserved Reading location - IP/workstation name: [email or web address]
--- NOTE | 2017-09-06 12:19 | RADIOLOGY REPORT (SQ) ---
EXAM DESCRIPTION: CT CERVICAL SPINE WITHOUT COMPLETED DATE/TIME: 09/06/2017 11:55 am REASON FOR STUDY: fall, hit head, on aspirin, neck pain COMPARISON: 07/14/2017 TECHNIQUE: Axial images acquired through the cervical spine without intravenous contrast. Images re viewed with lung, soft tissue and bone windows. Reconstructed coronal and sagittal MPR images review ed. Images stored on PACS. All CT scanners at this facility use dose modulation, iterative reconstruction, and/or weight based d osing when appropriate to reduce radiation dose to as low as reasonably achievable (ALARA). [facility]: Dose Right [facility]: CareDose [facility]: Dose Right [facility]: Teradose 4D [facility]: [employer] RADIATION DOSE: CT Rad equipment meets quality standard of care and radiation dose reduction techniq ues were employed. CTDIvol: 10.4 mGy. DLP: 183 mGy-cm. mGy. LIMITATIONS: None. FINDINGS: ALIGNMENT: Anatomic. MINERALIZATION: Normal. VERTEBRAL BODIES: No fractures or dislocation. DISCS: Multilevel disc space narrowing with osteophytes. FACETS, LATERAL MASSES, POSTERIOR ELEMENTS: Facet arthropathy. No fractures. No dislocation. No ac moody findings. HARDWARE: None in the spine. VISUALIZED RIBS: No fractures. LUNG APICES AND SOFT TISSUES: No significant or acute findings. OTHER: No other significant finding. IMPRESSION: CHRONIC DEGENERATIVE CHANGES. NO ACUTE FINDINGS. TECHNICAL DOCUMENTATION: JOB ID: [id number] Quality ID # [id number]: Final reports with documentation of one or more dose reduction techniques (e.g., Au tomated exposure control, adjustment of the mA and/or kV according to patient size, use of iterative reconstruction technique) 2010 [employer]- All Rights Reserved Reading location - IP/workstation name: [email or web address]
--- NOTE | 2017-09-06 12:53 | ER Document Report ---
ED Fall <LAURO CONTRERAS - Last Filed: 09/06/17 13:27> - General TRAVEL OUTSIDE OF THE [place] IN LAST 30 DAYS: No - HPI Occurred: Just prior to arrival <MITCHEL DUNCAN - Last Filed: 09/06/17 15:06> - General Chief Complaint: Fall Stated Complaint: FALL/HEAD INJURY Time Seen by Provider: 09/06/17 11:14 Notes: She states that she lost her balance and slipped in a puddle of water. Hit her head. Did not lose consciousness. Septal scalp area with a small hematoma. No bleeding. (MITCHEL DUNCAN) - Related data Allergies/Adverse Reactions: No Known Allergies Allergy (Verified 09/06/17 10:37) Past Medical History - General Information source: Patient - Social History Smoking Status: Never Smoker Chew tobacco use (# tins/day): No Frequency of alcohol use: None Drug Abuse: None Lives with: Alone Family History: Reviewed & Not Pertinent Patient has suicidal ideation: No Patient has homicidal ideation: No - Past Medical History Cardiac Medical History: Reports: Hx Coronary Artery Disease, Hx Hypercholesterolemia, Hx Hypertension Denies: Hx Heart Attack Pulmonary Medical History: Reports: Hx Asthma, Hx Pneumonia Denies: Hx Bronchitis, Hx COPD Neurological Medical History: Denies: Hx Cerebrovascular Accident, Hx Seizures Renal/ Medical History: Denies: Hx Peritoneal Dialysis GI Medical History: Reports: Hx Gastroesophageal Reflux Disease Musculoskeltal Medical History: Reports Hx Arthritis Psychiatric Medical History: Reports: Hx Depression Past Surgical History: Reports: Hx Appendectomy, Hx Cardiac Catheterization - stent x2, Hx Coronary Stent - 2005 AND 2007, Hx Hysterectomy - Immunizations Hx Diphtheria, Pertussis, Tetanus Vaccination: Yes - 2011 Hx Pneumococcal Vaccination: 04/02/11 <MITCHEL DUNCAN - Last Filed: 09/06/17 15:06> Review of Systems - Review of Systems Constitutional: No symptoms reported EENT: No symptoms reported Cardiovascular: No symptoms reported Respiratory: No symptoms reported Gastrointestinal: No symptoms reported Genitourinary: No symptoms reported Female Genitourinary: No symptoms reported Musculoskeletal: No symptoms reported Skin: No symptoms reported Hematologic/Lymphatic: No symptoms reported Neurological/Psychological: No symptoms reported <MITCHEL DUNCAN - Last Filed: 09/06/17 15:06> Physical Exam - Vital signs Interpretation: Normal - General General appearance: Appears well, Alert - HEENT Head: Normocephalic, Other - Small contusion noted on the occipital scalp. Eyes: Normal Pupils: PERRL - Respiratory Respiratory status: No respiratory distress Chest status: Nontender Breath sounds: Normal Chest palpation: Normal - Cardiovascular Rhythm: Regular Heart sounds: Normal auscultation Murmur: No - Abdominal Inspection: Normal Distension: No distension Bowel sounds: Normal Tenderness: Nontender Organomegaly: No organomegaly - Back Back: Normal, Nontender - Extremities General upper extremity: Normal inspection, Nontender, Normal color, Normal ROM , Normal temperature General lower extremity: Normal inspection, Nontender, Normal color, Normal ROM , Normal temperature, Normal weight bearing. No: Driss's sign - Neurological Neuro grossly intact: Yes Cognition: Normal Orientation: AAOx4 Charissa Coma Scale Eye Opening: Spontaneous Charissa Coma Scale Verbal: Oriented Charissa Coma Scale Motor: Obeys Commands [place] Coma Scale Total: 15 Speech: Normal Motor strength normal: LUE, RUE, LLE, RLE Sensory: Normal - Psychological Associated symptoms: Normal affect, Normal mood - Skin Skin Temperature: Warm Skin Moisture: Dry Skin Color: Normal <MITCHEL DUNCAN - Last Filed: 09/06/17 15:06> - Vital signs Vitals: Temp Pulse Resp BP Pulse Ox 98.4 F 71 16 131/57 H 94 09/06/17 10:39 09/06/17 10:39 09/06/17 10:39 09/06/17 10:39 09/06/17 10:39 Course - Laboratory Result Diagrams: 09/06/17 11:27 09/06/17 11:27 <LAURO CONTRERAS - Last Filed: 09/06/17 13:27> - Laboratory Result Diagrams: 09/06/17 11:27 09/06/17 11:27 <MITCHEL DUNCAN - Last Filed: 09/06/17 15:06> - Re-evaluation Re-evalutation: 09/06/17 12:51 Laboratory 09/06/17 09/06/17 09/06/17 11:27 11:27 11:27 WBC 6.2 RBC 4.30 Hgb 12.9 Hct 38.7 MCV 90 MCH 29.9 MCHC 33.3 RDW 13.6 Plt Count 241 Seg Neutrophils % 58.1 Lymphocytes % 29.2 Monocytes % 8.2 Eosinophils % 3.8 Basophils % 0.7 Absolute Neutrophils 3.6 Absolute Lymphocytes 1.8 Absolute Monocytes 0.5 Absolute Eosinophils 0.2 Absolute Basophils 0.0 PT 13.5 INR 0.98 APTT 31.7 Sodium 142.6 Potassium 4.5 Chloride 104 Carbon Dioxide 29 Anion Gap 10 BUN 12 Creatinine 0.76 Est GFR ( Amer) > 60 Est GFR (Non-Af Amer) > 60 Glucose 98 Calcium 9.[address] 09/06/17 11:19 IMPRESSION: CHRONIC DEGENERATIVE CHANGES. NO ACUTE FINDINGS. Head CT 09/06/17 11:19 IMPRESSION: MILD CHRONIC CHANGES OF ATROPHY AND MICROVASCULAR ISCHEMIA. NO ACUTE intracranial findings. Scalp hematoma in the right occipital region. Other findings as noted above EVIDENCE OF ACUTE STROKE: NO. No evidence of acute injury. Small scalp hematoma. Labs unremarkable. No other significant injuries. Will DC at this time. (MITCHEL DUNCAN) - Vital Signs Vital signs: Temp Pulse Resp BP Pulse Ox 97.4 F 60 16 130/74 H 93 09/06/17 13:16 09/06/17 13:16 09/06/17 13:16 09/06/17 13:16 09/06/17 13:16 Discharge <LAURO CONTRERAS - Last Filed: 09/06/17 13:27> <MITCHEL DUNCAN - Last Filed: 09/06/17 15:06> - Discharge Clinical Impression: Scalp hematoma Qualifiers: Encounter type: initial encounter Qualified Code(s): S00.03XA - Contusion of scalp, initial encounter Closed head injury Qualifiers: Encounter type: initial encounter Qualified Code(s): S09.90XA - Unspecified injury of head, initial encounter Disposition: HOME, SELF-CARE Instructions: Head Injury Precautions ([facility]), Scalp Hematoma ([facility]) Referrals: ARNOLD BAILEY MD [Primary Care Provider] - Follow up as needed Scribe Documentation - Scribe Written by Rosyibe:: Kevin Zhao, 09/06/2017 0223 acting as scribe for :: Cathi <LAURO CONTRERAS - Last Filed: 09/06/17 13:27>
[2017-09-06] MEDS ORDERED: ACETAMINOPHEN 325 MG TABLET PO ONE (12:57)
[2017-09-06 13:34] VITALS: BP 130/74
== END 2017-09-06 13:36 | disposition home or self-care (01) ==
LOC: ER 10:36
DX: S00.03XA Contusion of scalp, initial encounter (principal); S09.90XA Unspecified injury of head, initial encounter; W01.0XXA Fall on same level from slipping, tripping and stumbling without subsequent striking against object, initial encounter; J45.909 Unspecified asthma, uncomplicated
CPT/HCPCS: 99284; 90471; 36415; 85025; 85610; 85730; 80048; 70450; 72125; 90715; L0120; A9270

== ENCOUNTER 2018-04-18 15:19 | Observation (INO) | payer MEDICARE, OTHER ==
--- NOTE | 2018-04-18 16:04 | RADIOLOGY REPORT (SQ) ---
EXAM DESCRIPTION: CT HEAD WITHOUT COMPLETED DATE/TIME: 04/18/2018 3:53 pm REASON FOR STUDY: bed 3 [facility]berry s/p fall per dr farias COMPARISON: None. TECHNIQUE: Axial images acquired through the brain without intravenous contrast. Images reviewed wi th bone, brain and subdural windows. Additional sagittal and coronal reconstructions were generated. Images stored on PACS. All CT scanners at this facility use dose modulation, iterative reconstruction, and/or weight based d osing when appropriate to reduce radiation dose to as low as reasonably achievable (ALARA). [facility]: Dose Right [facility]: CareDose [facility]: Dose Right [facility]: Teradose 4D [facility]: REEL Qualified RADIATION DOSE: CT Rad equipment meets quality standard of care and radiation dose reduction techniq ues were employed. CTDIvol: 53.2 mGy. DLP: 991 mGy-cm. mGy. LIMITATIONS: None. FINDINGS: VENTRICLES: Normal size and contour. CEREBRUM: No masses. No hemorrhage. No midline shift. No evidence for acute infarction. Normal gra y/white matter differentiation. No areas of low density in the white matter. CEREBELLUM: No masses. No hemorrhage. No alteration of density. No evidence for acute infarction. EXTRAAXIAL SPACES: No fluid collections. No masses. ORBITS AND GLOBE: No intra- or extraconal masses. Normal contour of globe without masses. CALVARIUM: No fracture. PARANASAL SINUSES: No fluid or mucosal thickening. SOFT TISSUES: Large soft tissue laceration and hematoma of the scalp vertex. OTHER: No other significant finding. IMPRESSION: 1. No acute intracranial pathology. 2. Large soft tissue laceration and hematoma of the scalp vertex. EVIDENCE OF ACUTE STROKE: NO. COMMENT: Quality ID # [id number]: Final reports with documentation of one or more dose reduction techniques (e.g., Automated exposure control, adjustment of the mA and/or kV according to patient size, use of iterative reconstruction technique) TECHNICAL DOCUMENTATION: JOB ID: [id number] [employer]- All Rights Reserved Reading location - IP/workstation name: [email or web address]
[2018-04-18] MEDS ORDERED: LIDOCAINE 1% INJ-PF (10 MG/ML) 30 ML SDV INJ ONE (16:24)
--- NOTE | 2018-04-18 16:26 | RADIOLOGY REPORT (SQ) ---
EXAM DESCRIPTION: CT CERVICAL SPINE WITHOUT COMPLETED DATE/TIME: 04/18/2018 3:53 pm REASON FOR STUDY: bed 3 mayberry s/p fall per dr farias COMPARISON: 09/06/2017. TECHNIQUE: Axial images acquired through the cervical spine without intravenous contrast. Images re viewed with lung, soft tissue and bone windows. Reconstructed coronal and sagittal MPR images review ed. Images stored on PACS. All CT scanners at this facility use dose modulation, iterative reconstruction, and/or weight based d osing when appropriate to reduce radiation dose to as low as reasonably achievable (ALARA). [facility]: Dose Right [facility]: CareDose [facility]: Dose Right [facility]: Teradose 4D [facility]: N4MD RADIATION DOSE: CT Rad equipment meets quality standard of care and radiation dose reduction techniq ues were employed. CTDIvol: 19.0 mGy. DLP: 392 mGy-cm. mGy. LIMITATIONS: None. FINDINGS: ALIGNMENT: Cervical scoliosis convex left. MINERALIZATION: Normal. VERTEBRAL BODIES: Cervical spondylosis and degenerative disc disease C3- 7. DISCS: C1-C2: No significant spinal stenosis or exit foraminal stenosis. C2-C3: No abnormality. C3-C4: Cervical spondylosis and degenerative disc disease. Foraminal narrowing on the right. Facet arthropathy. C4-C5: Cervical spondylosis and degenerative disc disease. Facet arthropathy and hypertrophy. C5-C6: Cervical spondylosis and degenerative disc disease. Bilateral foraminal stenosis. Facet arth ropathy. C6-C7: Cervical spondylosis and degenerative disc disease. Bilateral foraminal stenosis, greatest on the left. . C7-T1: No significant abnormality. LUNG APICES AND SOFT TISSUES: No significant or acute findings. OTHER: No other significant finding. IMPRESSION: Multilevel cervical spondylosis and degenerative disc disease. No significant change fr om prior study. TECHNICAL DOCUMENTATION: JOB ID: [id number] Quality ID # [id number]: Final reports with documentation of one or more dose reduction techniques (e.g., Au tomated exposure control, adjustment of the mA and/or kV according to patient size, use of iterative reconstruction technique) 2010 [employer]- All Rights Reserved Reading location - IP/workstation name: [email or web address]
--- NOTE | 2018-04-18 16:33 | ER Document Report ---
ED Fall - General Chief Complaint: Fall Injury Stated Complaint: FALL/HEAD INJURY Time Seen by Provider: 04/18/18 16:21 Notes: 88-year-old female to the emergency department chief complaint of fall. Patient is chronically unsteady on her feet. Was in the car for She lost her balance falling backward. Struck the back of her head. No loss of consciousness. Large laceration and large amount of bleeding. Bleeding continues in the ER. Patient transferred by EMS. Has chronic neck pain. TRAVEL OUTSIDE OF THE [place] IN LAST 30 DAYS: No - HPI Occurred: Just prior to arrival Where: Home Context: Lost balance Associated symptoms: denies: Lost consciousness, Dazed/confused, Seizure Location of injury/pain: Head, Neck Quality of pain: Dull, Throbbing Severity: Moderate Pain Level: 4 - Related data Allergies/Adverse Reactions: No Known Allergies Allergy (Verified 09/06/17 10:37) Past Medical History - General Information source: Patient, Relative - Social History Smoking Status: Never Smoker Frequency of alcohol use: None Drug Abuse: None Lives with: Family Family History: Reviewed & Not Pertinent Patient has suicidal ideation: No Patient has homicidal ideation: No - Past Medical History Cardiac Medical History: Reports: Hx Coronary Artery Disease, Hx Hypercholesterolemia, Hx Hypertension Denies: Hx Heart Attack Pulmonary Medical History: Reports: Hx Asthma, Hx Pneumonia Denies: Hx Bronchitis, Hx COPD Neurological Medical History: Denies: Hx Cerebrovascular Accident, Hx Seizures Renal/ Medical History: Denies: Hx Peritoneal Dialysis GI Medical History: Reports: Hx Gastroesophageal Reflux Disease Musculoskeletal Medical History: Reports Hx Arthritis Psychiatric Medical History: Reports: Hx Depression Past Surgical History: Reports: Hx Appendectomy, Hx Cardiac Catheterization - stent x2, Hx Coronary Stent - 2006 AND 2008, Hx Hysterectomy - Immunizations Hx Diphtheria, Pertussis, Tetanus Vaccination: Yes - 2011 Hx Pneumococcal Vaccination: 04/02/11 Review of Systems - Review of Systems Notes: Constitutional: denies: Chills, Diaphoresis, Fever, Malaise, Weakness EENT: denies: Eye discharge, Blurred vision, Tearing, Double vision, Nose congestion, Nose discharge, Throat swelling, Mouth pain. Head pain, neck pain laceration of head. Cardiovascular: denies: Palpitations, Heart racing, Orthopnea, Dyspnea, Chest pain Respiratory: denies: Cough, Hurts to breathe, Wheezing, Shortness of breath Gastrointestinal: denies: Abdominal pain, Diarrhea, Nausea, Vomiting, Black stools, bright red blood in stool Genitourinary: denies: Burning, Dysuria, Discharge, Frequency, Flank pain, Hematuria Musculoskeletal: denies: Joint pain, Joint swelling, Muscle pain, Muscle stiffness, back pain. Mild cervical neck pain. Hematologic/Lymphatic: denies: Anemia, Easy bleeding, Easy bruising, Blood clots Neurological/Psychological: denies: Confusion, Dementia, Depression, Loss of consciousness Skin: No lesions, no masses, no skin breakdown, no abscesses. Laceration to the back of the head with active bleeding. Physical Exam - Vital signs Vitals: Temp Pulse BP Pulse Ox 97.3 F 66 137/73 H 96 04/18/18 15:59 04/18/18 15:59 04/18/18 15:59 04/18/18 15:59 Interpretation: Normal - General General appearance: Appears well, Alert - HEENT Head: Normocephalic, Tenderness, Other - There is a laceration at the back of the scalp. Large amount amount of blood and active bleeding. Large hematoma occipital scalp.. No: Racoon's eyes Eyes: Normal. No: Periorbital edema Pupils: PERRL Ears: Normal Tympanic membrane: Normal Mouth/Lips: Normal Mucous membranes: Normal Pharynx: Normal - Respiratory Respiratory status: No respiratory distress Chest status: Nontender Breath sounds: Normal Chest palpation: Normal - Cardiovascular Rhythm: Regular Heart sounds: Normal auscultation Murmur: No - Abdominal Inspection: Normal Distension: No distension Bowel sounds: Normal Tenderness: Nontender Organomegaly: No organomegaly - Back Back: Normal, Nontender - Extremities General upper extremity: Normal inspection, Nontender, Normal color, Normal ROM, Normal temperature General lower extremity: Normal inspection, Nontender, Normal color, Normal ROM, Normal temperature. No: Driss's sign - Neurological Neuro grossly intact: Yes Cognition: Normal Orientation: AAOx4 Charissa Coma Scale Eye Opening: Spontaneous Charissa Coma Scale Verbal: Oriented Charissa Coma Scale Motor: Obeys Commands Charissa Coma Scale Total: 15 Speech: Normal Motor strength normal: LUE, RUE, LLE, RLE Sensory: Normal - Psychological Associated symptoms: Normal affect, Normal mood - Skin Skin Temperature: Warm Skin Moisture: Dry Skin Color: Normal Course - Re-evaluation Re-evalutation: 04/18/18 18:31 Patient a fall sustaining a large laceration back of the scalp. Initially attempted to stapled the scalp laceration however unable to obtain hemostasis. TXA was used. Direct pressure. Converted procedure to suture repair with Vicryl. Hemostasis was obtained. Pressure dressing was applied. Patient became quite pale and experienced nausea. IV was ordered. Fluid bolus ordered. Pepcid ordered. Zofran ordered. Patient will need to be admitted for observation due to closed head injury and significant amount of blood loss. Will consult with hospitalist for admission at this time. - Vital Signs Vital signs: Temp Pulse Resp BP Pulse Ox 97.3 F 66 137/73 H 96 04/18/18 15:59 04/18/18 15:59 04/18/18 15:59 04/18/18 15:59 - Laboratory Result Diagrams: 04/18/18 19:17 04/18/18 16:51 Laboratory results interpreted by me: 04/18/18 19:17 WBC 12.8 H RBC 3.61 L Hgb 10.9 L Hct 32.4 L Procedures - Laceration/Wound Repair Head Time completed: 18:33 Wound length (cm): 4 Wound's Depth, Shape: Linear Anesthetic type: 1% Lidocaine Volume Anesthetic (mLs): 10 Wound explored: Clean Irrigated w/ Saline (mLs): 3 Wound Debrided: Extensive Wound Repaired With: Sutures, Other - 4 lacey placed as well Suture Size/Type: Other - 2-0 Vicryl Number of Sutures: 15 Post-procedure wound care: Sterile dressing applied Post-procedure NV exam normal: Yes Complications: No Discharge - Discharge Clinical Impression: Scalp laceration Qualifiers: Encounter type: initial encounter Qualified Code(s): S01.01XA - Laceration without foreign body of scalp, initial encounter Closed head injury Qualifiers: Encounter type: initial encounter Qualified Code(s): S09.90XA - Unspecified injury of head, initial encounter Condition: Good Disposition: ADMITTED OBSERVATION Admitting Provider: Surgicalist - [facility] Unit Admitted: Medical Floor Referrals: ARNOLD BAILEY MD [Primary Care Provider] - Follow up as needed
[2018-04-18 17:12] LABS: ABSOLUTE BASOPHILS # (AUTO) 0.1 10^3/uL (0.0-0.2); ABSOLUTE EOSINOPHILS # (AUTO) 0.3 10^3/uL (0.0-0.6); ABSOLUTE LYMPHOCYTES (AUTO) 2.2 10^3/uL (0.5-4.7); ABSOLUTE MONOCYTES (AUTO) 0.7 10^3/uL (0.1-1.4); ABSOLUTE NEUT (AUTO) 7.1 10^3/uL (1.7-8.2); BASOPHILS % (AUTO) 0.8 % (0-2); EOSINOPHILS % (AUTO) 3.1 % (0-6); HEMATOCRIT 37.7 % (36.0-47.0); HEMOGLOBIN 12.9 g/dL (12.0-15.5); LYMPHOCYTES % (AUTO) 20.6 % (13-45); MEAN CORPUSCULAR HEMOGLOBIN 30.5 pg (27.0-33.4); MEAN CORPUSCULAR HGB CONC 34.1 g/dL (32.0-36.0); MEAN CORPUSCULAR VOLUME 89 fl (80-97); PLATELET COUNT 233 10^3/uL (150-450); RED BLOOD COUNT 4.22 10^6/uL (3.72-5.28); RED CELL DISTRIBUTION WIDTH 13.5 % (11.5-14.0); SEGMENTED NEUTROPHILS % (AUTO) 68.5 % (42-78); TOTAL CELLS COUNTED % (AUTO) 100 %; WHITE BLOOD COUNT 10.4 10^3/uL (4.0-10.5)
[2018-04-18 17:33] LABS: ALANINE AMINOTRANSFERASE 30 U/L (9-52); ALBUMIN 4.4 g/dL (3.5-5.0); ALKALINE PHOSPHATASE 60 U/L (38-126); ANION GAP 7 (5-19); ASPARTATE AMINO TRANSFERASE 33 U/L (14-36); BILIRUBIN,DIRECT 0.2 mg/dL (0.0-0.4); BILIRUBIN,TOTAL 0.4 mg/dL (0.2-1.3); BLOOD UREA NITROGEN 14 mg/dL (7-20); CALCIUM 9.3 mg/dL (8.4-10.2); CARBON DIOXIDE 30 mmol/L (22-30); CHLORIDE 102 mmol/L (98-107); GLUCOSE 110 mg/dL (75-110); POTASSIUM 4.5 mmol/L (3.6-5.0); TOTAL PROTEIN 7.1 g/dL (6.3-8.2)
[2018-04-18] MEDS ORDERED: TRANEXAMIC ACID INJ/PF 1,000 MG/10 ML SDV IV ONE (17:50)
[2018-04-18] MEDS ORDERED: ONDANSETRON 4 MG TAB.RAPDIS ONE (18:03)
[2018-04-18] MEDS ORDERED: FAMOTIDINE INJ/PF 20 MG/2 ML SDV IV ONE ×2 (18:16→18:19)
[2018-04-18] MEDS ORDERED: NORMAL SALINE 1000 ML 1,000 ML IV ONE (18:19)
[2018-04-18] MEDS ORDERED: ONDANSETRON 4 MG TAB.RAPDIS PO ONE (18:19)
[2018-04-18 19:38] LABS: HEMATOCRIT 32.4 % (36.0-47.0); MEAN CORPUSCULAR HGB CONC 33.5 g/dL (32.0-36.0); MEAN CORPUSCULAR VOLUME 90 fl (80-97); PLATELET COUNT 210 10^3/uL (150-450); RED BLOOD COUNT 3.61 10^6/uL (3.72-5.28); RED CELL DISTRIBUTION WIDTH 13.8 % (11.5-14.0); WHITE BLOOD COUNT 12.8 10^3/uL (4.0-10.5)
[2018-04-18 19:40] LABS: HEMOGLOBIN 10.9 g/dL (12.0-15.5)
[2018-04-18 20:34] LABS: APPEARANCE,URINE SLIGHTLY-CLOUDY; BILIRUBIN,URINE NEGATIVE (NEGATIVE); COLOR,URINE YELLOW; GLUCOSE, URINE NEGATIVE (NEGATIVE); KETONES,URINE NEGATIVE (NEGATIVE); LEUKOCYTE ESTERASE,URINE LARGE (NEGATIVE); NITRITE,URINE NEGATIVE (NEGATIVE); PROTEIN,URINE NEGATIVE (NEGATIVE); URINE SPECIFIC GRAVITY 1.016; UROBILINOGEN,URINE NEGATIVE mg/dL (<2.0)
[2018-04-18] MEDS ORDERED: ALBUTEROL SULFATE HFA (90 MCG/PUFF) 8 GM MDI (1 MDI/ER DISP) IH PRN (20:49)
[2018-04-18] MEDS ORDERED: METHOCARBAMOL 750 MG TABLET PO PRN (20:49)
--- NOTE | 2018-04-18 20:49 | PDOC H&P ---
History of Present Illness Admission Date/PCP: ARNOLD BAILEY MD Patient complains of: fall History of Present Illness: SETH HANSON is a 88 year old female, with hx of multiple falls in the past, who fell this afternoon while returning home from shopping and carrying heavy bags. According to the patient, she tried to pull herself up on a house stair when she lost balance and fell backward. She sustained a posterior head laceration with significant loss on blood (H/H went from 12.9/37.7 on admission to 10.8/32.4 few hours later). The patient has not full recollection of the events but she denies LOC. A CT head and cervical spine is negative for acute findings. Past Medical History Cardiac Medical History: Reports: Coronary Artery Disease, Hyperlipidema, Hypertension Denies: Myocardial Infarction Pulmonary Medical History: Reports: Asthma, Pneumonia Denies: Bronchitis, Chronic Obstructive Pulmonary Disease (COPD) Neurological Medical History: Denies: Seizures GI Medical History: Reports: Gastroesophageal Reflux Disease Musculoskeltal Medical History: Reports: Arthritis Psychiatric Medical History: Reports: Depression Hematology: Denies: Anemia Past Surgical History Past Surgical History: Reports: Appendectomy, Cardiac Catheterization - stent x2, Coronary Stent - 2006 AND 2008, Hysterectomy Social History Lives with: Family Smoking Status: Never Smoker Family History Family History: Reviewed & Not Pertinent Parental Family History Reviewed: No Children Family History Reviewed: No Sibling(s) Family History Reviewed.: No Medication/Allergy Home Medications: Albuterol Sulfate [Proventil HFA] 2 inh IH Q4 PRN 10/25/12 Amlodipine Besylate 1 tab PO DAILY 10/25/12 Aspirin [Ecotrin 81 mg EC Tablet] 81 mg PO DAILY 10/25/12 Atorvastatin Calcium [Lipitor 40 mg Tablet] 40 mg PO QHS 10/25/12 Metoprolol Succinate [Toprol XL 25 mg Tablet] 25 mg PO BID 10/25/12 Pantoprazole Sodium 40 mg PO Q12 10/25/12 Paroxetine HCl [Paxil Cr 25 Mg Tab.Sr] 25 mg PO DAILY 10/25/12 Tramadol HCl 50 mg PO QHS 10/25/12 Alprazolam [Alprazolam ER] 0.5 mg PO DAILY 03/15/15 Cyclobenzaprine HCl 10 mg PO QHS 03/15/15 Hydrocodone/Acetaminophen [[place] 5-325 mg Tablet] 1 tab PO Q6 #12 tablet Methocarbamol [Robaxin 750 mg Tablet] 750 mg PO ASDIR PRN #40 tablet 07/14/17 Triamcinolone 10 gm MC DAILY 10 Days powder 07/14/17 Allergies/Adverse Reactions: No Known Allergies Allergy (Verified 09/06/17 10:37) Physical Exam Vital Signs: Temp Pulse Resp BP Pulse Ox 97.3 F 66 137/73 H 96 04/18/18 15:59 04/18/18 15:59 04/18/18 15:59 04/18/18 15:59 Intake & Output 04/17/18 04/18/18 04/19/18 06:59 06:59 06:59 Intake Total 1000 Balance 1000 General appearance: PRESENT: no acute distress Head exam: PRESENT: other - laceration of occipital scal, approximately 7 cm in lenght Eye exam: PRESENT: EOMI Mouth exam: PRESENT: moist, neck supple Neck exam: PRESENT: full ROM, tenderness - left side and posterior neck/shoulder Respiratory exam: PRESENT: clear to auscultation chiquita Cardiovascular exam: PRESENT: RRR GI/Abdominal exam: PRESENT: soft Rectal exam: PRESENT: deferred Extremities exam: PRESENT: full ROM Musculoskeletal exam: PRESENT: full ROM Neurological exam: PRESENT: alert, awake, oriented to time, CN II-XII grossly intact, other - normal motor and sensoty function all 4 extermities Psychiatric exam: PRESENT: appropriate affect Skin exam: PRESENT: warm Results Laboratory Results: 04/18/18 19:17 04/18/18 16:51 04/18/18 04/18/18 04/18/18 16:51 16:51 19:17 WBC 10.4 12.8 H RBC 4.22 3.61 L Hgb 12.9 10.9 L Hct 37.7 32.4 L MCV 89 90 MCH 30.5 30.0 MCHC 34.1 33.5 RDW 13.5 13.8 Plt Count 233 210 Seg Neutrophils % 68.5 Lymphocytes % 20.6 Monocytes % 7.0 Eosinophils % 3.1 Basophils % 0.8 Absolute Neutrophils 7.1 Absolute Lymphocytes 2.2 Absolute Monocytes 0.7 Absolute Eosinophils 0.3 Absolute Basophils 0.1 Sodium 139.0 Potassium 4.5 Chloride 102 Carbon Dioxide 30 Anion Gap 7 BUN 14 Creatinine 0.70 Est GFR ( Amer) > 60 Est GFR (Non-Af Amer) > 60 Glucose 110 Calcium 9.3 Total Bilirubin 0.4 AST 33 ALT 30 Alkaline Phosphatase 60 Total Protein 7.1 Albumin 4.4 Impressions: Cervical Spine CT 04/18/18 00:00 IMPRESSION: Multilevel cervical spondylosis and degenerative disc disease. No significant change from prior study. Head CT 04/18/18 00:00 IMPRESSION: 1. No acute intracranial pathology. 2. Large soft tissue laceration and hematoma of the scalp vertex. EVIDENCE OF ACUTE STROKE: NO. Assessment & Plan - Diagnosis (2) Scalp laceration Qualifiers: Encounter type: initial encounter Qualified Code(s): S01.01XA - Laceration without foreign body of scalp, initial encounter - Plan Summary Plan Summary: A/ hx of recent fall this afternoon without LOC, severe occipital scalp laceration drop in H/H (12.9/37.7 to 10.9/32.4 Vital sign stable negative head and Cervical spine CT hx of previous falls of unknown cause CAD with stents P/ Admit by surgery for overnight observation Consult Hospitalist service for medical management and advice in regard to evaluation of this patient hx of falls which might represent a symptoms of either a neurologica or cardiac condition.
[2018-04-18] MEDS ORDERED: NORMAL SALINE 1000 ML 1,000 ML IV PRN (20:54)
[2018-04-18] MEDS ORDERED: ALBUTEROL SULFATE HFA (90 MCG/PUFF) 200 PUFF/8.5 GM MDI IH PRN (21:13)
[2018-04-18] MEDS ORDERED: CYCLOBENZAPRINE HCL 10 MG TABLET PO SCH (22:00)
[2018-04-18] MEDS ORDERED: ATORVASTATIN CALCIUM 40 MG TABLET PO SCH (22:00)
[2018-04-18] MEDS ORDERED: TRAMADOL HCL 50 MG TABLET PO SCH (22:00)
[2018-04-18] MEDS: CYCLOBENZAPRINE HCL 10 MG TABLET PO SCH (22:15)
[2018-04-18] MEDS: METOPROLOL SUCCINATE 25 MG TAB.SR.24H PO SCH (22:16)
[2018-04-18] MEDS: TRAMADOL HCL 50 MG TABLET PO SCH (22:16)
--- NOTE | 2018-04-18 23:02 | EKG REPORT ---
SEVERITY:- ABNORMAL ECG - SINUS RHYTHM LEFT VENTRICULAR HYPERTROPHY : Confirmed by: Elier Beard 18-Apr-2018 23:01:34
[2018-04-18 23:06] LABS: CREATINE KINASE MB 1.18 ng/mL (<4.55)
[2018-04-18 23:07] LABS: TROPONIN I < 0.012 ng/mL
[2018-04-19 05:01] LABS: ABSOLUTE EOSINOPHILS # (AUTO) 0.2 10^3/uL (0.0-0.6); ABSOLUTE LYMPHOCYTES (AUTO) 2.2 10^3/uL (0.5-4.7); ABSOLUTE MONOCYTES (AUTO) 0.9 10^3/uL (0.1-1.4); ABSOLUTE NEUT (AUTO) 2.8 10^3/uL (1.7-8.2); BASOPHILS % (AUTO) 0.5 % (0-2); EOSINOPHILS % (AUTO) 3.8 % (0-6); HEMATOCRIT 27.5 % (36.0-47.0); HEMOGLOBIN 9.4 g/dL (12.0-15.5); MEAN CORPUSCULAR HEMOGLOBIN 30.8 pg (27.0-33.4); MEAN CORPUSCULAR HGB CONC 34.3 g/dL (32.0-36.0); MEAN CORPUSCULAR VOLUME 90 fl (80-97); MONOCYTES % (AUTO) 14.9 % (3-13); PLATELET COUNT 182 10^3/uL (150-450); RED BLOOD COUNT 3.06 10^6/uL (3.72-5.28); RED CELL DISTRIBUTION WIDTH 13.5 % (11.5-14.0); SEGMENTED NEUTROPHILS % (AUTO) 44.8 % (42-78); TOTAL CELLS COUNTED % (AUTO) 100 %; WHITE BLOOD COUNT 6.2 10^3/uL (4.0-10.5)
[2018-04-19 05:14] LABS: ANION GAP 5 (5-19); BLOOD UREA NITROGEN 14 mg/dL (7-20); CALCIUM 7.7 mg/dL (8.4-10.2); CARBON DIOXIDE 25 mmol/L (22-30); CHLORIDE 109 mmol/L (98-107); GLUCOSE 95 mg/dL (75-110); SODIUM 138.7 mmol/L (137-145)
[2018-04-19 05:21] LABS: CREATINE KINASE MB 1.01 ng/mL (<4.55)
[2018-04-19 05:34] LABS: TROPONIN I < 0.012 ng/mL
[2018-04-19] MEDS: LANSOPRAZOLE 30 MG TAB.RAP.DR PO SCH ×2 (06:43→16:29)
[2018-04-19 08:19] LABS: ABSOLUTE RETICS # 0.058 10^6/uL (0.028-0.122); RETICULOCYTE COUNT (AUTO) 1.87 % (0.66-2.85)
[2018-04-19 08:25] LABS: IRON(TIBC) 35.2 ug/dL (37-170)
--- NOTE | 2018-04-19 09:30 | PDOC PROGRESS REPORT ---
Subjective Subjective:: Not sure if she can get up out of bed; accompanied by her daughter who is distracted on the cell phone with [employer] calls. Currently patient has had multiple falls at least for 5 perhaps more, and reportedly not fully evaluated Reason For Visit: SCALP LACERATION,FALL Physical Exam Vital Signs: Temp Pulse Resp BP Pulse Ox 98.4 F 72 16 108/61 94 04/19/18 07:48 04/19/18 07:48 04/19/18 07:48 04/19/18 07:48 04/19/18 07:48 Intake & Output 04/18/18 04/19/18 04/20/18 06:59 06:59 06:59 Intake Total 1220 Balance 1220 Weight 49.4 kg General appearance: PRESENT: no acute distress, other - Patient is awake and oriented x3 Head exam: PRESENT: other Results Laboratory Results: 04/19/18 04:38 04/19/18 04:38 04/18/18 04/18/18 04/18/18 16:51 16:51 19:17 WBC 10.4 12.8 H RBC 4.22 3.61 L Hgb 12.9 10.9 L Hct 37.7 32.4 L MCV 89 90 MCH 30.5 30.0 MCHC 34.1 33.5 RDW 13.5 13.8 Plt Count 233 210 Seg Neutrophils % 68.5 Lymphocytes % 20.6 Monocytes % 7.0 Eosinophils % 3.1 Basophils % 0.8 Absolute Neutrophils 7.1 Absolute Lymphocytes 2.2 Absolute Monocytes 0.7 Absolute Eosinophils 0.3 Absolute Basophils 0.1 Retic Count (auto) Absolute Retic Sodium 139.0 Potassium 4.5 Chloride 102 Carbon Dioxide 30 Anion Gap 7 BUN 14 Creatinine 0.70 Est GFR ( Amer) > 60 Est GFR (Non-Af Amer) > 60 Glucose 110 Calcium 9.3 Total Bilirubin 0.4 AST 33 ALT 30 Alkaline Phosphatase 60 Total Protein 7.1 Albumin 4.4 Urine Color Urine Appearance Urine pH Ur Specific [place] Urine Protein Urine Glucose (UA) Urine Ketones Urine Blood Urine Nitrite Ur Leukocyte Esterase Urine WBC (Auto) Urine RBC (Auto) 04/18/18 04/19/18 04/19/18 20:15 04:38 04:38 WBC 6.2 RBC 3.06 L Hgb 9.4 L Hct 27.5 L MCV 90 MCH 30.8 MCHC 34.3 RDW 13.5 Plt Count 182 Seg Neutrophils % 44.8 Lymphocytes % 36.0 Monocytes % 14.9 H Eosinophils % 3.8 Basophils % 0.5 Absolute Neutrophils 2.8 Absolute Lymphocytes 2.2 Absolute Monocytes 0.9 Absolute Eosinophils 0.2 Absolute Basophils 0.0 Retic Count (auto) Absolute Retic Sodium 138.7 Potassium 4.0 Chloride 109 H Carbon Dioxide 25 Anion Gap 5 BUN 14 Creatinine 0.67 Est GFR ( Amer) > 60 Est GFR (Non-Af Amer) > 60 Glucose 95 Calcium 7.7 L Total Bilirubin AST ALT Alkaline Phosphatase Total Protein Albumin Urine Color YELLOW Urine Appearance SLIGHTLY-CLOUDY Urine pH 7.0 Ur Specific [place] 1.016 Urine Protein NEGATIVE Urine Glucose (UA) NEGATIVE Urine Ketones NEGATIVE Urine Blood NEGATIVE Urine Nitrite NEGATIVE Ur Leukocyte Esterase LARGE H Urine WBC (Auto) 57 Urine RBC (Auto) 1 04/19/18 04:38 WBC RBC Hgb Hct MCV MCH MCHC RDW Plt Count Seg Neutrophils % Lymphocytes % Monocytes % Eosinophils % Basophils % Absolute Neutrophils Absolute Lymphocytes Absolute Monocytes Absolute Eosinophils Absolute Basophils Retic Count (auto) 1.87 Absolute Retic 0.058 Sodium Potassium Chloride Carbon Dioxide Anion Gap BUN Creatinine Est GFR ( Amer) Est GFR (Non-Af Amer) Glucose Calcium Total Bilirubin AST ALT Alkaline Phosphatase Total Protein Albumin Urine Color Urine Appearance Urine pH Ur Specific [place] Urine Protein Urine Glucose (UA) Urine Ketones Urine Blood Urine Nitrite Ur Leukocyte Esterase Urine WBC (Auto) Urine RBC (Auto) 04/18/18 04/18/18 04/18/18 20:15 22:25 22:25 Creatine Kinase 69 CK-MB (CK-2) 1.18 Troponin I < 0.012 < 0.012 04/19/18 04/19/18 04:38 04:38 Creatine Kinase 67 CK-MB (CK-2) 1.01 Troponin I < 0.012 Impressions: Cervical Spine CT 04/18/18 00:00 IMPRESSION: Multilevel cervical spondylosis and degenerative disc disease. No significant change from prior study. Head CT 04/18/18 00:00 IMPRESSION: 1. No acute intracranial pathology. 2. Large soft tissue laceration and hematoma of the scalp vertex. EVIDENCE OF ACUTE STROKE: NO. Assessment & Plan - Diagnosis (1) Hx of falling Is this a current diagnosis for this admission?: Yes Plan: Impression: Repetitive falling from standing position, acute episode yesterday with resultant scalp laceration, closed. Patient admitted to surgical service for overnight observation. No further bleeding. Etiology of fall to be determined Medications: 1. Advance diet; no need for further surgical intervention 2. I have spoken with Dr. Barrow, hospitalist, who will see patient in consultation and likely transfer patient to internal medicine service for fall evaluation further workup as deemed appropriate. 3. Patient can follow-up with emergency department in 1-2 weeks for staple removal. (2) Scalp laceration Qualifiers: Encounter type: initial encounter Qualified Code(s): S01.01XA - Laceration without foreign body of scalp, initial encounter Is this a current diagnosis for this admission?: Yes
[2018-04-19] MEDS ORDERED: AMLODIPINE BESYLATE 10 MG TABLET PO SCH ×3 (10:00)
[2018-04-19] MEDS ORDERED: METOPROLOL SUCCINATE 25 MG TAB.SR.24H PO SCH (10:00)
[2018-04-19] MEDS ORDERED: PAROXETINE HCL 25 MG TAB.SR.24H PO SCH (10:00)
[2018-04-19] MEDS: PAROXETINE HCL 25 MG TAB.SR.24H PO SCH (10:08)
[2018-04-19] MEDS: METOPROLOL SUCCINATE 25 MG TAB.SR.24H PO SCH ×2 (10:08→21:53)
[2018-04-19] MEDS: AMLODIPINE BESYLATE 5 MG TABLET PO SCH (12:00)
[2018-04-19 12:16] LABS: CREATINE KINASE MB 0.98 ng/mL (<4.55)
[2018-04-19 12:21] LABS: TROPONIN I < 0.012 ng/mL
--- NOTE | 2018-04-19 12:41 | PDOC PROGRESS REPORT ---
Subjective Progress Note for:: 04/19/18 Subjective:: 88-year-old female admitted with history of fall had a rash laceration on the scalp. She has also history of multiple falls in the past. No complications in the last 24 hours. Patient is afebrile. Patient able to go to the restroom with assistance. Orthostatics are negative. Medical team is going to take over the pt care. Patient is alert awake oriented and communicating very well. Reason For Visit: SCALP LACERATION,FALL Physical Exam Vital Signs: Temp Pulse Resp BP Pulse Ox 98.7 F 71 17 127/58 H 94 04/19/18 12:00 04/19/18 12:00 04/19/18 12:00 04/19/18 12:00 04/19/18 12:00 Intake & Output 04/18/18 04/19/18 04/20/18 06:59 06:59 06:59 Intake Total 1220 Balance 1220 Weight 49.4 kg General appearance: PRESENT: no acute distress Head exam: PRESENT: atraumatic Eye exam: PRESENT: PERRLA Mouth exam: PRESENT: moist Neck exam: ABSENT: carotid bruit, JVD, lymphadenopathy, thyromegaly Respiratory exam: PRESENT: clear to auscultation chiquita. ABSENT: rales, rhonchi, wheezes Cardiovascular exam: PRESENT: RRR. ABSENT: diastolic murmur, rubs, systolic murmur GI/Abdominal exam: PRESENT: normal bowel sounds, soft. ABSENT: distended, guarding, mass, organolmegaly, rebound, tenderness Extremities exam: PRESENT: full ROM. ABSENT: calf tenderness, clubbing, pedal edema Neurological exam: PRESENT: alert, awake, oriented to person, oriented to place, oriented to time, oriented to situation, CN II-XII grossly intact. ABSENT: motor sensory deficit Psychiatric exam: PRESENT: appropriate affect, normal mood. ABSENT: homicidal ideation, suicidal ideation Results Laboratory Results: 04/19/18 04:38 04/19/18 04:38 04/18/18 04/18/18 04/18/18 16:51 16:51 19:17 WBC 10.4 12.8 H RBC 4.22 3.61 L Hgb 12.9 10.9 L Hct 37.7 32.4 L MCV 89 90 MCH 30.5 30.0 MCHC 34.1 33.5 RDW 13.5 13.8 Plt Count 233 210 Seg Neutrophils % 68.5 Lymphocytes % 20.6 Monocytes % 7.0 Eosinophils % 3.1 Basophils % 0.8 Absolute Neutrophils 7.1 Absolute Lymphocytes 2.2 Absolute Monocytes 0.7 Absolute Eosinophils 0.3 Absolute Basophils 0.1 Retic Count (auto) Absolute Retic Sodium 139.0 Potassium 4.5 Chloride 102 Carbon Dioxide 30 Anion Gap 7 BUN 14 Creatinine 0.70 Est GFR ( Amer) > 60 Est GFR (Non-Af Amer) > 60 Glucose 110 Calcium 9.3 Iron TIBC % Saturation Ferritin Total Bilirubin 0.4 AST 33 ALT 30 Alkaline Phosphatase 60 Total Protein 7.1 Albumin 4.4 Vitamin B12 Folate Urine Color Urine Appearance Urine pH Ur Specific [place] Urine Protein Urine Glucose (UA) Urine Ketones Urine Blood Urine Nitrite Ur Leukocyte Esterase Urine WBC (Auto) Urine RBC (Auto) 04/18/18 04/19/18 04/19/18 20:15 04:38 04:38 WBC 6.2 RBC 3.06 L Hgb 9.4 L Hct 27.5 L MCV 90 MCH 30.8 MCHC 34.3 RDW 13.5 Plt Count 182 Seg Neutrophils % 44.8 Lymphocytes % 36.0 Monocytes % 14.9 H Eosinophils % 3.8 Basophils % 0.5 Absolute Neutrophils 2.8 Absolute Lymphocytes 2.2 Absolute Monocytes 0.9 Absolute Eosinophils 0.2 Absolute Basophils 0.0 Retic Count (auto) Absolute Retic Sodium 138.7 Potassium 4.0 Chloride 109 H Carbon Dioxide 25 Anion Gap 5 BUN 14 Creatinine 0.67 Est GFR ( Amer) > 60 Est GFR (Non-Af Amer) > 60 Glucose 95 Calcium 7.7 L Iron TIBC % Saturation Ferritin Total Bilirubin AST ALT Alkaline Phosphatase Total Protein Albumin Vitamin B12 Folate Urine Color YELLOW Urine Appearance SLIGHTLY-CLOUDY Urine pH 7.0 Ur Specific [place] 1.016 Urine Protein NEGATIVE Urine Glucose (UA) NEGATIVE Urine Ketones NEGATIVE Urine Blood NEGATIVE Urine Nitrite NEGATIVE Ur Leukocyte Esterase LARGE H Urine WBC (Auto) 57 Urine RBC (Auto) 1 04/19/18 04/19/18 04:38 04:38 WBC RBC Hgb Hct MCV MCH MCHC RDW Plt Count Seg Neutrophils % Lymphocytes % Monocytes % Eosinophils % Basophils % Absolute Neutrophils Absolute Lymphocytes Absolute Monocytes Absolute Eosinophils Absolute Basophils Retic Count (auto) 1.87 Absolute Retic 0.058 Sodium Potassium Chloride Carbon Dioxide Anion Gap BUN Creatinine Est GFR ( Amer) Est GFR (Non-Af Amer) Glucose Calcium Iron 35.2 L TIBC 266 % Saturation 13 Ferritin 52.40 Total Bilirubin AST ALT Alkaline Phosphatase Total Protein Albumin Vitamin B12 937.0 H Folate 10.40 Urine Color Urine Appearance Urine pH Ur Specific [place] Urine Protein Urine Glucose (UA) Urine Ketones Urine Blood Urine Nitrite Ur Leukocyte Esterase Urine WBC (Auto) Urine RBC (Auto) 04/18/18 04/18/18 04/18/18 20:15 22:25 22:25 Creatine Kinase 69 CK-MB (CK-2) 1.18 Troponin I < 0.012 < 0.012 04/19/18 04/19/18 04/19/18 04:38 04:38 11:36 Creatine Kinase 67 76 CK-MB (CK-2) 1.01 Troponin I < 0.012 04/19/18 11:36 Creatine Kinase CK-MB (CK-2) 0.98 Troponin I < 0.012 Impressions: Cervical Spine CT 04/18/18 00:00 IMPRESSION: Multilevel cervical spondylosis and degenerative disc disease. No significant change from prior study. Head CT 04/18/18 00:00 IMPRESSION: 1. No acute intracranial pathology. 2. Large soft tissue laceration and hematoma of the scalp vertex. EVIDENCE OF ACUTE STROKE: NO. Assessment & Plan - Diagnosis (1) Hx of falling Is this a current diagnosis for this admission?: Yes Plan: 04/19/2018-as mentioned above this 88-year-old female with history of multiple falls came to the emergency room last night with history of fall and scalp laceration. CT head was done negative for acute changes cervical spine x-rays were done CT of the cervical spine also done negative for acute changes. Seen by the surgical team and H&P was done last night. Patient is transferred to the medical services to complete the workup for the syncopal episodes and frequent falls. Carotid Doppler was requested and echocardiogram report is pending. Orthostatics are negative. Therapy consult was requested. Chart menu planner consult was requested to see if pt need any rolling walker cane for the patient to go home. (2) HTN (hypertension) Is this a current diagnosis for this admission?: Yes Plan: 04/19/2018-patient has history of hypertension blood pressure today is 108/61. She is on IV fluids normal saline. We are going to discontinue IV fluids. Plan is to resume her home medications. She is on amlodipine 5 mg daily and metoprolol 25 mg twice a day. (3) Depression Is this a current diagnosis for this admission?: Yes Plan: 04/19/2018 patient has history of anxiety and depression, she is on paroxetine at home plan is to resume the medication while she was in the hospital. (4) Anxiety Is this a current diagnosis for this admission?: Yes Plan: 04/19/2018 patient has history of anxiety disorder she is on alprazolam at home plan is to resume the medication during the hospital stay. (5) Anemia Is this a current diagnosis for this admission?: Yes Plan: 04/19/2017-patient hemoglobin is 9.4 today on admission it was 12.9. Drop in hemoglobin may be secondary to IV fluids. Plan is to recheck a CBC tomorrow morning. Patient denies any noticing blood in the stool or in the urine. - Time Time Spent with patient: 15-24 minutes Medications reviewed and adjusted accordingly: Yes Anticipated discharge: Home
--- NOTE | 2018-04-19 16:12 | RADIOLOGY REPORT (SQ) ---
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 TECHNIQUE: Grayscale ultrasound, Doppler velocity and spectra, and color Doppler images acquired of the extra-cranial carotid and vertebral arteries. Images stored on PACS. LIMITATIONS: None. FINDINGS: RIGHT CAROTID CCA Velocities: Within normal limits. ICA Velocities Peak systolic 0.74 m/s. End diastolic 0.25 m/s. Proximal ICA/CCA peak systolic ratio 0.85. Spectra normal. No significant plaque. LEFT CAROTID CCA Velocities: Within normal limits. ICA Velocities Peak systolic 0.83 m/s. End diastolic 0.26 m/s. Proximal ICA/CCA peak systolic ratio 1.03. Spectra normal. No significant plaque. VERTEBRAL ARTERIES: Antegrade flow. Normal waveforms. SUBCLAVIAN ARTERIES: No finding. OTHER: No other significant finding. IMPRESSION: NO HEMODYNAMICALLY SIGNIFICANT STENOSIS. COMMENT: Quality ID #[id number]: Velocity criteria are extrapolated from the diameter data as defined by t he Society of Radiologists in Ultrasound Consensus Conference. Radiology 2003: 229; 340-346. TECHNICAL DOCUMENTATION: JOB ID: [id number] [employer]- All Rights Reserved Reading location - IP/workstation name: [email or web address]
[2018-04-19] MEDS: OXYCODONE-ACETAMINOPHEN 5-325 MG TABLET PO PRN (16:29)
[2018-04-19] MEDS: CYCLOBENZAPRINE HCL 10 MG TABLET PO SCH (21:52)
[2018-04-19] MEDS: ALPRAZOLAM 0.25 MG TABLET PO SCH (21:53)
[2018-04-19] MEDS: TRAMADOL HCL 50 MG TABLET PO SCH (21:53)
--- NOTE | 2018-04-19 22:04 | XCELERA REPORT ---
[address] [address] Transthoracic Echocardiogram Report Name: SETH HANSON Age: 88 yrs Gender: Female : 1930 [facility] Status: [facility]: 04/19/2018 10:17 AM Height: 65 in Weight: 108 lb BSA: 1.5 m2 Procedure: A two-dimensional transthoracic echocardiogram with color flow and Doppler was performed. Images were not obtained from all of the standard acoustic windows due to the limited scope of the study. Reason For Study: orthostasis sytolic murmur History: orthostasis / sytolic murmur. Ordering Physician: SID GONZALEZ Performed By: Sergio Choe Interpretation Summary The left ventricle is normal in size. There is normal left ventricular wall thickness. LV EF is 65% Left ventricular systolic function is normal. Doppler measurements suggest impaired left ventricular relaxation, which is associated with grade I/IV or mild diastolic dysfunction The left ventricular wall motion is normal. There is no thrombus. The right ventricle is normal in size and function. The right atrium is normal. The left atrial size is normal. There is mild mitral valve prolapse. There is no vegetation seen on the mitral valve. There is no mitral valve stenosis. There is a mild amount of mitral regurgitation There is no aortic valvular vegetation. There is no aortic valve stenosis There is no LVOT obstruction. There is a mild amount of aortic regurgitation There is no tricuspid stenosis. There is a mild amount of tricuspid regurgitation There is mild pulmonary hypertension by echo 6RVSP is 39 mm of Hg , with RA mean of 10. There is no pulmonic valvular stenosis. There is a mild amount of pulmonic regurgitation The aortic root is normal size. The inferior vena cava was not visualized There is no pericardial effusion. MMode/2D Measurements & Calculations RVDd: 2.8 cm LVIDd: 4.9 cm FS: 34.8 % Ao root diam: 2.9 cm IVSd: 0.88 cm LVIDs: 3.2 cm EDV(Teich): 114.4 ml Ao root area: 6.5 cm2 LVPWd: 0.94 cm ESV(Teich): 41.4 ml LA dimension: 3.4 cm EF(Teich): 63.8 % LVOT diam: 2.1 cm LVOT area: 3.4 cm2 Doppler Measurements & Calculations MV E max virginia: MV P1/2t max [place]: Ao V2 max: AI max [place]: 97.2 cm/sec 2.5 cm/sec 116.3 cm/sec 372.5 cm/sec MV A max [place]: MV P1/2t: Ao max P.4 mmHgAI max P.5 mmHg 117.5 cm/sec 309.4 msec JUAN JOSE(V,D): 3.1 cm2 AI dec slope: MV E/A: 0.83 MVA(P1/2t): 172.7 cm/sec2 0.71 cm2 AI P1/2t: 631.7 msec MV dec slope: 2.3 cm/sec2 MV dec time: 0.20 sec LV V1 max PG: PA V2 max: PI end-d virginia: TR max [place]: 4.4 mmHg 80.9 cm/sec 111.2 cm/sec 270.5 cm/sec LV V1 max: PA max P.6 mmHg TR max P.3 mmHg 104.6 cm/sec AV P1/2t-pr_phl: MV P1/2t-pr_phl: 631.7 msec 309.4 msec Left Ventricle The left ventricle is normal in size. There is normal left ventricular wall thickness. LV EF is 65%. Left ventricular systolic function is normal. Doppler measurements suggest impaired left ventricular relaxation, which is associated with grade I/IV or mild diastolic dysfunction. The left ventricular wall motion is normal. There is no thrombus. Right Ventricle The right ventricle is normal in size and function. Atria The right atrium is normal. The left atrial size is normal. Mitral Valve There is mild mitral valve prolapse. There is no vegetation seen on the mitral valve. There is no mitral valve stenosis. There is a mild amount of mitral regurgitation. Aortic Valve There is no aortic valvular vegetation. There is no aortic valve stenosis. There is no LVOT obstruction. There is a mild amount of aortic regurgitation. Tricuspid Valve There is no tricuspid stenosis. There is a mild amount of tricuspid regurgitation. There is mild pulmonary hypertension by echo. 6RVSP is 39 mm of Hg , with RA mean of 10. Pulmonic Valve There is no pulmonic valvular stenosis. There is a mild amount of pulmonic regurgitation. Great Vessels The aortic root is normal size. The inferior vena cava was not visualized. Effusions There is no pericardial effusion. : SID GONZALEZ > Sonia José
[2018-04-20] MEDS: LANSOPRAZOLE 30 MG TAB.RAP.DR PO SCH (05:08)
[2018-04-20] MEDS: AMLODIPINE BESYLATE 5 MG TABLET PO SCH (09:48)
[2018-04-20] MEDS: OXYCODONE-ACETAMINOPHEN 5-325 MG TABLET PO PRN (09:50)
[2018-04-20] MEDS: PAROXETINE HCL 25 MG TAB.SR.24H PO SCH (09:50)
[2018-04-20] MEDS: METOPROLOL SUCCINATE 25 MG TAB.SR.24H PO SCH (09:51)
[2018-04-20] MEDS: ALPRAZOLAM 0.25 MG TABLET PO SCH (09:51)
[2018-04-20] MEDS ORDERED: ASPIRIN 81 MG TABLET, ENT COATED PO SCH (10:00)
[2018-04-20] MEDS ORDERED: ALPRAZOLAM 0.5 MG PO SCH (10:00)
[2018-04-20 12:29] VITALS: BP 115/54
--- NOTE | 2018-04-20 19:47 | PROGRESS NOTE E ---
Progress Note NAME: SETH HANSON : 1930 AGE: 88Y DATE: 04/20/2018 ROOM: 529 SUBJECTIVE: The patient is a pleasant 88-year-old female who fell and admitted. There are not any complaint. She had a normal CT scan of her spine and hip, normal echocardiogram and carotid ultrasound. OBJECTIVE: GENERAL: The patient is lying in bed, comfortable, not in distress. VITAL SIGNS: Blood pressure 127/58, temperature 98.7, heart rate 75. HEENT: Head normocephalic, atraumatic. Pupils round, reactive to light and accommodation bilaterally. Extraocular movements intact. Ears: Tympanic membranes intact bilaterally. No discharge from the ear. No discharge from the nose. NECK: Supple, no increased JVD, no thyromegaly, no lymphadenopathy. CARDIOVASCULAR: Normal S1, S2. Regular rate and rhythm. No murmur, no gallops. RESPIRATORY: Lungs clear. ABDOMEN: Soft, nontender. MUSCULOSKELETAL: No edema. NEUROLOGIC: Awake, alert. SKIN: No rash. ASSESSMENT: 1. FALL. 2. ANEMIA OF CHRONIC DISEASE. 3. ANXIETY. 4. HYPERTENSION, PROBABLY SYNCOPE. PLAN: 1. Her blood pressure is running low. I will discontinue her Norvasc. 2. Probably discharge home later today. 3. Follow up with her primary care physician after discharge. DICTATING PHYSICIAN: DARION DUBOSE M.D. [id number] PHY#: [id number] ID: [id number] JOB#: [id number] ACCT: [id number] cc: >
--- NOTE | 2018-04-22 12:59 | DISCHARGE SUMMARY E ---
Discharge Summary NAME: SETH HANSON : 1930 AGE: 88Y ADMITTED: 04/18/2018 DISCHARGED: 04/20/2018 ADMISSION DIAGNOSES: 1. Syncope. 2. Fall. 3. Scalp laceration. DISCHARGE DIAGNOSES: 1. Fall. 2. Syncope. 3. Anxiety. 4. Depression. 5. Hypertension. 6. Anemia. IMAGING: Echocardiogram unremarkable. Carotid Dopplers unremarkable. CT scan of cervical spine was normal. CT head is normal. EKG was unremarkable. HOSPITAL COURSE: The patient is an 88-year-old female who had a past medical history of hypertension. She is on multiple medications: Norvasc, metoprolol XL twice a day, mg daily. The patient admitted she had the coronary artery disease, hyperlipidemia, hypertension. She was admitted with a fall. She had the fall, and she also was on paroxetine, Xanax, Flexeril, hydrocodone, tramadol. The patient workup for syncope and fall. She had a spinal cervical CT scan, there was no fracture. CT scan of the hip was normal. Carotid ultrasound was unremarkable. Echocardiogram was normal. The patient's blood pressure running relatively low and her Norvasc was discontinued today. She had also surgery consult. Dr. Monteiro saw the patient yesterday for a laceration on her head. The patient is stable to be discharged home today. PHYSICAL EXAMINATION: General: Upon discharge, the patient lying in bed comfortable, not in distress. VITAL SIGNS: Blood pressure is 115/54, temperature 97.4, heart rate 64. HEENT: Normocephalic, atraumatic. Pupils round, reactive to light and accommodation bilaterally. Ears: Tympanic membranes intact bilaterally. No discharge from the ears. No discharge from the nose. EXTREMITIES: Intact. NECK: Supple. No increased JVD. No thyromegaly. No lymphadenopathy. CARDIOVASCULAR: Normal S1 and S2. Regular rate and rhythm. No murmur. No Gallops. RESPIRATORY: Lungs clear. ABDOMEN: Soft. MUSCULOSKELETAL: No edema. NEUROLOGIC: Awake, alert. SKIN: No rash. LABORATORY: White blood count 6.2, hemoglobin 9.4. Sodium 138, potassium 4, chloride is 109, creatinine 0.6. DISCHARGE INSTRUCTIONS: Discharge the patient home. MEDICATIONS: 1. Albuterol. 2. Xanax 0.2 twice a day. 3. Aspirin. 4. Flexeril 5 mg at bedtime. 5. Prevacid 30 mg twice a day. 6. Toprol XL 25 mg twice a day. 7. Percocet p.r.n. 8. Paroxetine (Paxil) 25 mg daily. 9. Tramadol 50 mg at bedtime. FOLLOWUP: Followup with her private care physician in 1 week. DIET: Cardiac diet. ACTIVITY: As tolerated. Medication held is Norvasc. I spent 40 minutes. DICTATING PHYSICIAN: DARION DUBOSE M.D. [id number] PHY#: [id number] ID: [id number] JOB#: [id number] ACCT: [id number] cc:NARESH BOYLE MD, ABDELAZIZ M.D. >
== END 2018-04-20 15:37 | disposition home health service (06) ==
LOC: ER 15:19 → EH 20:59 → 5 22:56
PROVIDERS: ADMIT Internal Medicine; ATTEND Internal Medicine
PROC: 0HQ0XZZ Repair Scalp Skin, External Approach (ICD-10-PCS; principal; 2018-04-18)
DX: R55 Syncope and collapse (principal); S01.01XA Laceration without foreign body of scalp, initial encounter; W19.XXXA Unspecified fall, initial encounter; Y92.009 Unspecified place in unspecified non-institutional (private) residence as the place of occurrence of the external cause; F41.9 Anxiety disorder, unspecified; F32.9 Major depressive disorder, single episode, unspecified; I10 Essential (primary) hypertension; D64.9 Anemia, unspecified; E78.5 Hyperlipidemia, unspecified; I25.10 Atherosclerotic heart disease of native coronary artery without angina pectoris; R26.81 Unsteadiness on feet; M62.81 Muscle weakness (generalized); R29.6 Repeated falls; Z91.81 History of falling; G89.29 Other chronic pain; M54.2 Cervicalgia; R11.0 Nausea; Z90.49 Acquired absence of other specified parts of digestive tract; Z95.5 Presence of coronary angioplasty implant and graft; Z79.82 Long term (current) use of aspirin; Z79.899 Other long term (current) drug therapy
CPT/HCPCS: 12002; 93005; 36415 ×2; 82553 ×2; 82607; 82550 ×2; 82728; 82746; 83540; 83550; 85025 ×2; 85027; 85045; 80048; 80053; 81001; 84484 ×2; 93306; 93880; 70450; 72125; 93010; 97110; 97116; 97163; A9270 ×18; J3490 ×2; J7030 ×2; S0028; S0119

== ENCOUNTER 2019-08-10 07:52 | Emergency (ER) | payer MEDICARE, OTHER ==
--- NOTE | 2019-08-10 08:17 | ER Document Report ---
ED General - General Chief Complaint: Head Injury Stated Complaint: FALL/HEAD INJURY Time Seen by Provider: 08/10/19 08:10 Primary Care Provider: ARNOLD BAILEY MD [Primary Care Provider] - Follow up as needed Mode of Arrival: Ambulatory Information source: Patient Notes: 89-year-old female arrives by POV with chief complaint of falling out of bed onto a carpeted hardwood floor this morning. Patient reports she was dreaming she was attempting to pull the woman out of some water and she rolled to her right out of her 3 foot high bed and impacted her left superior orbit and forehead onto the floor. She also complains of some dorsal neck pain. Patient denies any problems swallowing fever chills cough cold but does admit to cephalgia and large hematoma to forehead TRAVEL OUTSIDE OF THE [place] IN LAST 30 DAYS: No - HPI Onset: This morning Onset/Duration: Sudden Quality of pain: No pain Severity: Mild Pain Level: 1 Associated symptoms: None Exacerbated by: Denies Relieved by: Denies Similar symptoms previously: Yes - Patient reports she is fallen outside in other places x 5 in the past Recently seen / treated by doctor: No - Related Data Allergies/Adverse Reactions: No Known Allergies Allergy (Verified 09/06/17 10:37) Past Medical History - General Information source: Patient - Social History Smoking Status: Never Smoker Cigarette use (# per day): No Chew tobacco use (# tins/day): No Smoking Education Provided: No Frequency of alcohol use: None Lives with: Alone Family History: Reviewed & Not Pertinent - Past Medical History Cardiac Medical History: Reports: Hx Coronary Artery Disease, Hx Hypercholesterolemia, Hx Hypertension Denies: Hx Heart Attack Pulmonary Medical History: Reports: Hx Asthma, Hx Pneumonia Denies: Hx Bronchitis, Hx COPD Neurological Medical History: Denies: Hx Cerebrovascular Accident, Hx Seizures Renal/ Medical History: Denies: Hx Peritoneal Dialysis GI Medical History: Reports: Hx Gastroesophageal Reflux Disease Musculoskeletal Medical History: Reports Hx Arthritis Psychiatric Medical History: Reports: Hx Depression Past Surgical History: Reports: Hx Appendectomy, Hx Cardiac Catheterization - stent x2, Hx Coronary Stent - 2005 AND 2007, Hx Hysterectomy - Immunizations Hx Diphtheria, Pertussis, Tetanus Vaccination: Yes - 2011 Hx Pneumococcal Vaccination: 04/02/11 Review of Systems - Review of Systems Constitutional: No symptoms reported EENT: No symptoms reported, See HPI, Eye pain, Blurred vision, Other - forehead swelling and pain Cardiovascular: No symptoms reported Respiratory: No symptoms reported Gastrointestinal: No symptoms reported Genitourinary: No symptoms reported Female Genitourinary: No symptoms reported Musculoskeletal: See HPI, Neck pain Skin: No symptoms reported Hematologic/Lymphatic: No symptoms reported Neurological/Psychological: No symptoms reported Physical Exam - Vital signs Vitals: Temp Pulse Resp BP Pulse Ox 97.8 F 68 17 136/62 H 95 08/10/19 08:07 08/10/19 08:07 08/10/19 08:07 08/10/19 08:07 08/10/19 08:07 Interpretation: Normal - General General appearance: Alert - HEENT Head: Normocephalic, Tenderness, Other - hematoma @ 8 cm franchesca left forehead and sup orbit Eyes: Normal Conjunctiva: Normal Cornea: Normal Extraocular movements intact: Yes Eyelashes: Normal Pupils: PERRL Mouth/Lips: Normal Pharynx: Normal Neck: Normal - Respiratory Respiratory status: No respiratory distress Chest status: Nontender Breath sounds: Normal Chest palpation: Normal - Cardiovascular Rhythm: Regular Heart sounds: Normal auscultation Murmur: No - Abdominal Inspection: Normal Distension: No distension Bowel sounds: Normal Tenderness: Nontender Organomegaly: No organomegaly - Genitourinary External exam: Other - deferred - Back Back: Normal - Extremities General upper extremity: Normal inspection General lower extremity: Normal inspection - Neurological Neuro grossly intact: Yes Cognition: Normal Orientation: AAOx4 Charissa Coma Scale Eye Opening: Spontaneous Charissa Coma Scale Verbal: Oriented [place] Coma Scale Motor: Obeys Commands Charissa Coma Scale Total: 15 Speech: Normal Motor strength normal: LUE, RUE, LLE, RLE Sensory: Normal - Psychological Associated symptoms: Anxious - Skin Skin Temperature: Warm Skin Moisture: Dry Skin Color: Ecchymosis, Other - hematoma as per HPI Course - Vital Signs Vital signs: Temp Pulse Resp BP Pulse Ox 97.8 F 68 17 136/62 H 95 08/10/19 08:11 08/10/19 08:07 08/10/19 08:07 08/10/19 08:07 08/10/19 08:07 - Diagnostic Test Radiology reviewed: Reports reviewed Radiology results interpreted by me: 08/10/19 08:[address] head neck x djd Critical Care Note - Critical Care Note Total time excluding time spent on procedures (mins): 60 Comments: I informed patient of her results. Discharge - Discharge Clinical Impression: Hx of falling Fall Qualifiers: Encounter type: initial encounter Qualified Code(s): W19.XXXA - Unspecified fall, initial encounter Traumatic hematoma of forehead Qualifiers: Encounter type: initial encounter Qualified Code(s): S00.83XA - Contusion of other part of head, initial encounter Disposition: HOME, SELF-CARE Additional Instructions: Apply cool compresses to forehead x5 to 10 minutes each hour; avoid ice directly to skin. And avoid hot water directly to skin or hematoma. Return to ER as needed continue with your usual medicines also return to ER if symptoms of drowsiness or LOC occur. Referrals: ARNOLD BAILEY MD [Primary Care Provider] - Follow up as needed
--- NOTE | 2019-08-10 08:48 | RADIOLOGY REPORT (SQ) ---
EXAM DESCRIPTION: CT HEAD WITHOUT IMAGES COMPLETED DATE/TIME: 08/10/2019 8:29 am REASON FOR STUDY: fall COMPARISON: 04/18/2018 TECHNIQUE: Axial images acquired through the brain without intravenous contrast. Images reviewed wi th bone, brain and subdural windows. Additional sagittal and coronal reconstructions were generated. Images stored on PACS. All CT scanners at this facility use dose modulation, iterative reconstruction, and/or weight based d osing when appropriate to reduce radiation dose to as low as reasonably achievable (ALARA). [facility]: Dose Right [facility]: CareDose [facility]: Dose Right [facility]: Teradose 4D [facility]: [employer] RADIATION DOSE: CT Rad equipment meets quality standard of care and radiation dose reduction techniq ues were employed. CTDIvol: 53.2 mGy. DLP: 1017 mGy-cm. mGy. LIMITATIONS: None. FINDINGS: VENTRICLES: Normal size and contour. CEREBRUM: No masses. No hemorrhage. No midline shift. No evidence for acute infarction. Normal gra y/white matter differentiation. No areas of low density in the white matter. CEREBELLUM: No masses. No hemorrhage. No alteration of density. No evidence for acute infarction. EXTRAAXIAL SPACES: No fluid collections. No masses. ORBITS AND GLOBE: No intra- or extraconal masses. Normal contour of globe without masses. CALVARIUM: No fracture. PARANASAL SINUSES: No fluid or mucosal thickening. SOFT TISSUES: Soft tissue swelling over the left frontal bone. OTHER: No other significant finding. IMPRESSION: NORMAL BRAIN CT WITHOUT CONTRAST. EVIDENCE OF ACUTE STROKE: NO. COMMENT: Quality ID # [id number]: Final reports with documentation of one or more dose reduction techniques (e.g., Automated exposure control, adjustment of the mA and/or kV according to patient size, use of iterative reconstruction technique) TECHNICAL DOCUMENTATION: JOB ID: [id number] 2010 [employer]- All Rights Reserved Reading location - IP/workstation name: [email or web address]
--- NOTE | 2019-08-10 08:49 | RADIOLOGY REPORT (SQ) ---
EXAM DESCRIPTION: CT CERVICAL SPINE WITHOUT IMAGES COMPLETED DATE/TIME: 08/10/2019 8:29 am REASON FOR STUDY: fall COMPARISON: 04/18/2018 TECHNIQUE: Axial images acquired through the cervical spine without intravenous contrast. Images re viewed with lung, soft tissue and bone windows. Reconstructed coronal and sagittal MPR images review ed. Images stored on PACS. All CT scanners at this facility use dose modulation, iterative reconstruction, and/or weight based d osing when appropriate to reduce radiation dose to as low as reasonably achievable (ALARA). [facility]: Dose Right [facility]: CareDose [facility]: Dose Right [facility]: Teradose 4D [facility]: [employer] RADIATION DOSE: CT Rad equipment meets quality standard of care and radiation dose reduction techniq ues were employed. CTDIvol: 12.4 mGy. DLP: 221 mGy-cm. mGy. LIMITATIONS: None. FINDINGS: ALIGNMENT: Anatomic. MINERALIZATION: Normal. VERTEBRAL BODIES: No fractures or dislocation. DISCS: Multilevel disc space narrowing with osteophytes. FACETS, LATERAL MASSES, POSTERIOR ELEMENTS: Facet arthropathy. No fractures. No dislocation. No ac moody findings. HARDWARE: None in the spine. VISUALIZED RIBS: No fractures. LUNG APICES AND SOFT TISSUES: No significant or acute findings. OTHER: No other significant finding. IMPRESSION: CHRONIC DEGENERATIVE CHANGES. NO ACUTE FINDINGS. TECHNICAL DOCUMENTATION: JOB ID: [id number] Quality ID # [id number]: Final reports with documentation of one or more dose reduction techniques (e.g., Au tomated exposure control, adjustment of the mA and/or kV according to patient size, use of iterative reconstruction technique) 2010 [employer]- All Rights Reserved Reading location - IP/workstation name: [email or web address]
[2019-08-10 09:02] VITALS: BP 147/62
== END 2019-08-10 09:17 | disposition home or self-care (01) ==
LOC: ER 07:52
DX: S00.83XA Contusion of other part of head, initial encounter (principal); M54.2 Cervicalgia; H53.8 Other visual disturbances; W06.XXXA Fall from bed, initial encounter; I25.10 Atherosclerotic heart disease of native coronary artery without angina pectoris; E78.00 Pure hypercholesterolemia, unspecified; I10 Essential (primary) hypertension; Z90.710 Acquired absence of both cervix and uterus
CPT/HCPCS: 70450; 72125; 99285

== ENCOUNTER 2019-11-13 06:43 | Emergency (ER) | payer MEDICARE, OTHER ==
[2019-11-13 07:48] LABS: ABSOLUTE BASOPHILS # (AUTO) 0.1 10^3/uL (0.0-0.2); ABSOLUTE EOSINOPHILS # (AUTO) 0.4 10^3/uL (0.0-0.6); ABSOLUTE LYMPHOCYTES (AUTO) 1.6 10^3/uL (0.5-4.7); ABSOLUTE MONOCYTES (AUTO) 0.7 10^3/uL (0.1-1.4); ABSOLUTE NEUT (AUTO) 2.2 10^3/uL (1.7-8.2); BASOPHILS % (AUTO) 1.2 % (0-2); EOSINOPHILS % (AUTO) 8.2 % (0-6); HEMATOCRIT 35.5 % (36.0-47.0); HEMOGLOBIN 12.1 g/dL (12.0-15.5); LYMPHOCYTES % (AUTO) 32.7 % (13-45); MEAN CORPUSCULAR HEMOGLOBIN 30.8 pg (27.0-33.4); MEAN CORPUSCULAR HGB CONC 33.9 g/dL (32.0-36.0); MEAN CORPUSCULAR VOLUME 91 fl (80-97); MONOCYTES % (AUTO) 13.8 % (3-13); PLATELET COUNT 212 10^3/uL (150-450); RED BLOOD COUNT 3.92 10^6/uL (3.72-5.28); RED CELL DISTRIBUTION WIDTH 13.7 % (11.5-14.0); SEGMENTED NEUTROPHILS % (AUTO) 44.1 % (42-78); TOTAL CELLS COUNTED % (AUTO) 100 %
--- NOTE | 2019-11-13 08:01 | RADIOLOGY REPORT (SQ) ---
EXAM DESCRIPTION: CT HEAD WITHOUT IV CONTRAST COMPLETED DATE/TME: 11/13/2019 06:56 CLINICAL HISTORY: 89 years Female, left arm numbness COMPARISON: 07/14/17 TECHNIQUE: No contrast. Coronal and sagittal reformat. This exam was performed according to our departmental dose-optimization program, which includes automated exposure control, adjustment of the mA and/or kV according to patient size and/or use of iterative reconstruction technique. FINDINGS: No hemorrhage. 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 No mass, mass effect, or midline shift. Atherosclerosis. Parenchymal volume loss. Brain and extra-axial structures appear otherwise intact. IMPRESSION: No acute findings.
[2019-11-13 08:16] LABS: ALKALINE PHOSPHATASE 64 U/L (38-126); ASPARTATE AMINO TRANSFERASE 36 U/L (14-36); BILIRUBIN,TOTAL 0.4 mg/dL (0.2-1.3); BLOOD UREA NITROGEN 14 mg/dL (7-20); CALCIUM 8.9 mg/dL (8.4-10.2); CHLORIDE 106 mmol/L (98-107); GLUCOSE 104 mg/dL (75-110); POTASSIUM 4.1 mmol/L (3.6-5.0); TOTAL PROTEIN 6.7 g/dL (6.3-8.2)
[2019-11-13 08:21] LABS: ANION GAP 4 (5-19); CARBON DIOXIDE 29 mmol/L (22-30)
--- NOTE | 2019-11-13 11:07 | ER Document Report ---
ED General - General Chief Complaint: Numbness of Arm Stated Complaint: LEFT ARM NUMBNESS Time Seen by Provider: 11/13/19 06:51 Primary Care Provider: ARNOLD BAILEY MD [Primary Care Provider] - Follow up as needed Mode of Arrival: Wheelchair Information source: Patient TRAVEL OUTSIDE OF THE [place] IN LAST 30 DAYS: No - HPI Notes: Patient presents with left arm numbness and pain. She states that she was unsure if it was numb but that it was very painful and she tried soaking it in water but that did not relieve it. She states it did stop after she took 2 nitroglycerin. She says she never had chest pain or shortness of breath. She states that the pain started approximate 4:30 in the morning this morning. It was constant and severe. It radiated up the left arm. Nothing made it better or worse except for the above nitroglycerin. There was a throbbing sensation. - Related Data Allergies/Adverse Reactions: No Known Allergies Allergy (Verified 09/06/17 10:37) Past Medical History - General Information source: Patient - Social History Smoking Status: Never Smoker Frequency of alcohol use: None Drug Abuse: None Family History: Reviewed & Not Pertinent Patient has homicidal ideation: No - Past Medical History Cardiac Medical History: Reports: Hx Coronary Artery Disease, Hx Hypercholesterolemia, Hx Hypertension Denies: Hx Heart Attack Pulmonary Medical History: Reports: Hx Asthma, Hx Pneumonia Denies: Hx Bronchitis, Hx COPD Neurological Medical History: Denies: Hx Cerebrovascular Accident, Hx Seizures Renal/ Medical History: Denies: Hx Peritoneal Dialysis GI Medical History: Reports: Hx Gastroesophageal Reflux Disease Musculoskeletal Medical History: Reports Hx Arthritis Psychiatric Medical History: Reports: Hx Depression Past Surgical History: Reports: Hx Appendectomy, Hx Cardiac Catheterization - stent x2, Hx Coronary Stent - 2006 AND 2007, Hx Hysterectomy - Immunizations Hx Diphtheria, Pertussis, Tetanus Vaccination: Yes - 2011 Hx Pneumococcal Vaccination: 04/02/11 Review of Systems - Review of Systems Constitutional: denies: Chills, Fever Cardiovascular: denies: Chest pain, Palpitations Respiratory: denies: Cough, Short of breath -: Yes All other systems reviewed and negative Physical Exam - Vital signs Vitals: Temp Pulse Resp BP Pulse Ox 97.5 F 65 18 152/77 H 93 11/13/19 06:49 11/13/19 06:49 11/13/19 06:49 11/13/19 06:49 11/13/19 06:49 Interpretation: Hypertensive - General General appearance: Appears well, Alert - HEENT Head: Normocephalic, Atraumatic Eyes: Normal Pupils: PERRL - Respiratory Respiratory status: No respiratory distress Chest status: Nontender Breath sounds: Normal Chest palpation: Normal - Cardiovascular Rhythm: Regular Heart sounds: Normal auscultation Murmur: No - Abdominal Inspection: Normal Distension: No distension Bowel sounds: Normal Tenderness: Nontender Organomegaly: No organomegaly - Back Back: Normal, Nontender - Extremities General upper extremity: Normal inspection, Nontender, Normal color, Normal ROM, Normal temperature General lower extremity: Normal inspection, Nontender, Normal color, Normal ROM, Normal temperature, Normal weight bearing. No: Driss's sign - Neurological Neuro grossly intact: Yes Cognition: Normal Orientation: AAOx4 Charissa Coma Scale Eye Opening: Spontaneous Charissa Coma Scale Verbal: Oriented Charissa Coma Scale Motor: Obeys Commands [place] Coma Scale Total: 15 Speech: Normal Cranial nerves: Normal Cerebellar coordination: Normal. 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 No: Pronator drift Sensory: Normal - Psychological Associated symptoms: Normal affect, Normal mood - Skin Skin Temperature: Warm Skin Moisture: Dry Skin Color: Normal Course - Re-evaluation Re-evalutation: 11/13/19 11:07 Patient presented with arm pain that seemed questionable for possible unstable angina. However she has 2 sets of normal enzymes. She has no ischemic EKG changes. She has had no pain since she has been in the emergency department. I did call and discussed this with her teachers aide, Dr. Antony. He states that he feels the best course of care would be to have the patient discharged and he will arrange for a stress test urgently. I feel this is a reasonable disposition and I discussed this with the patient. She is in agreement. I do not see any evidence that this was TIA or a neurological episode. - Vital Signs Vital signs: Temp Pulse Resp BP Pulse Ox 97.5 F 65 22 H 143/65 H 94 11/13/19 06:49 11/13/19 07:21 11/13/19 10:01 11/13/19 10:01 11/13/19 10:01 - Laboratory Result Diagrams: 11/13/19 07:26 11/13/19 07:26 Laboratory results interpreted by me: 11/13/19 11/13/19 07:26 07:26 Hct 35.5 L Cataño % (Auto) 13.8 H Eos % (Auto) 8.2 H Anion Gap 4 L - Diagnostic Test Radiology reviewed: Image reviewed, Reports reviewed - EKG Interpretation by Me EKG shows normal: Sinus rhythm Rate: Normal - 64 Rhythm: NSR Voltage: Consistent with LVH When compared to previous EKG there are: No significant change Discharge - Discharge Clinical Impression: Left arm pain Condition: Stable Disposition: HOME, SELF-CARE Instructions: Arm Pain, Nonspecific ([facility]) Additional Instructions: Dr. Antony or someone from his office should call you by tomorrow to arrange for a stress test. If you do not hear from Dr. Antony by tomorrow then please call Dr. Antony's office. Referrals: ISAAC ANTONY MD [EMERITUS] - Follow up tomorrow
[2019-11-13 11:47] VITALS: BP 145/71
--- NOTE | 2019-11-13 15:15 | EKG REPORT ---
SEVERITY:- ABNORMAL ECG - SINUS RHYTHM FIRST DEGREE AV BLOCK LEFT VENTRICULAR HYPERTROPHY ANTERIOR Q WAVES, POSSIBLY DUE TO LVH : Confirmed by: Celio Mcclure MD 13-Nov-2019 15:14:28
== END 2019-11-13 11:47 | disposition home or self-care (01) ==
LOC: ER 06:43
DX: M79.602 Pain in left arm (principal); R20.0 Anesthesia of skin; I25.10 Atherosclerotic heart disease of native coronary artery without angina pectoris; I10 Essential (primary) hypertension; J45.909 Unspecified asthma, uncomplicated
CPT/HCPCS: 36415; 70450; 80053; 82962; 84484; 85025; 93005; 93010; 99285

== ENCOUNTER 2020-01-17 12:09 | Emergency (ER) | payer MEDICARE, OTHER ==
[2020-01-17] MEDS ORDERED: ACETAMINOPHEN 325 MG TABLET PO ONE (12:33)
--- NOTE | 2020-01-17 12:34 | ER Document Report ---
ED Medical Screen (RME) - General Stated Complaint: FALL/HEAD LACERATION Time Seen by Provider: 01/17/20 12:21 Primary Care Provider: ARNOLD BAILEY MD [Primary Care Provider] - Follow up as needed Mode of Arrival: Medic Information source: Patient Notes: 89-year-old female presented to ED for pain to her face neck back. She states she was out with a group of people when she went to step back in the car after finishing at the trip shop she stepped on a curb lost her balance and fell hitting her back and neck and her face. She has lacerations and injuries to the mouth area around her mouth and is having pain in the back and neck. She does have abrasions to the right elbow. She does have a neck brace on that was on from EMS. I have greeted and performed a rapid initial assessment of this patient. A comprehensive ED assessment and evaluation of the patient, analysis of test results and completion of medical decision making process will be conducted by an additional ED providers. TRAVEL OUTSIDE OF THE [place] IN LAST 30 DAYS: No - Related Data Allergies/Adverse Reactions: No Known Allergies Allergy (Verified 09/06/17 10:37) Past Medical History - Past Medical History Cardiac Medical History: Reports: Hx Coronary Artery Disease, Hx Hy percholesterolemia, Hx Hypertension Denies: Hx Heart Attack Pulmonary Medical History: Reports: Hx Asthma, Hx Pneumonia Denies: Hx Bronchitis, Hx COPD Neurological Medical History: Denies: Hx Cerebrovascular Accident, Hx Seizures Renal/ Medical History: Denies: Hx Peritoneal Dialysis GI Medical History: Reports: Hx Gastroesophageal Reflux Disease Musculoskeltal Medical History: Reports Hx Arthritis Psychiatric Medical History: Reports: Hx Depression Past Surgical History: Reports: Hx Appendectomy, Hx Cardiac Catheterization - stent x2, Hx Coronary Stent - 2006 AND 2007, Hx Hysterectomy - Immunizations Hx Diphtheria, Pertussis, Tetanus Vaccination: Yes - 2011 Physical Exam - Vital signs Vitals: Pulse Resp BP Pulse Ox 83 18 175/78 H 95 01/17/20 12:19 01/17/20 12:19 01/17/20 12:19 01/17/20 12:19 Course - Vital Signs Vital signs: Temp Pulse Resp BP Pulse Ox 83 18 175/78 H 95 01/17/20 12:19 01/17/20 12:19 01/17/20 12:19 01/17/20 12:19 Doctor's Discharge - Discharge Referrals: ARNOLD BAILEY MD [Primary Care Provider] - Follow up as needed
--- NOTE | 2020-01-17 12:54 | ER Document Report ---
ED Fall - General Chief Complaint: Fall Injury Stated Complaint: FALL/HEAD LACERATION Time Seen by Provider: 01/17/20 12:21 Primary Care Provider: ARNOLD BAILEY MD [Primary Care Provider] - Follow up as needed Mode of Arrival: Medic Information source: Patient Notes: 89-year-old woman presenting to the emergency department with history of a fall this morning. Apparently she stepped up on a roof and lost her balance and fell back. Patient denies loss of consciousness, she does complain of pain in the neck and in the upper back area. She had her dentures in and sustained a abrasion to the lower lip and smaller abrasion to the upper lip. TRAVEL OUTSIDE OF THE [place] IN LAST 30 DAYS: No - Related data Allergies/Adverse Reactions: No Known Allergies Allergy (Verified 01/17/20 12:34) Past Medical History - General Information source: Patient - Social History Smoking Status: Never Smoker Chew tobacco use (# tins/day): No Frequency of alcohol use: None Drug Abuse: None Family History: Reviewed & Not Pertinent Patient has homicidal ideation: No - Past Medical History Cardiac Medical History: Reports: Hx Coronary Artery Disease, Hx Hypercholesterolemia, Hx Hypertension Denies: Hx Heart Attack Pulmonary Medical History: Reports: Hx Asthma, Hx Pneumonia Denies: Hx Bronchitis, Hx COPD Neurological Medical History: Denies: Hx Cerebrovascular Accident, Hx Seizures Renal/ Medical History: Denies: Hx Peritoneal Dialysis GI Medical History: Reports: Hx Gastroesophageal Reflux Disease Musculoskeletal Medical History: Reports Hx Arthritis Psychiatric Medical History: Reports: Hx Depression Past Surgical History: Reports: Hx Appendectomy, Hx Cardiac Catheterization - stent x2, Hx Coronary Stent - 2006 AND 2008, Hx Hysterectomy - Immunizations Hx Diphtheria, Pertussis, Tetanus Vaccination: Yes - 2011 Hx Pneumococcal Vaccination: 04/02/11 Review of Systems - Review of Systems Notes: Constitutional: Negative for fever. HENT: + Neck pain + abrasion upper and lower lip, + upper back tenderness Eyes: Negative for visual changes. Cardiovascular: Negative for chest pain. Respiratory: Negative for shortness of breath. Gastrointestinal: Negative for abdominal pain, vomiting or diarrhea. Genitourinary: Negative for dysuria. Musculoskeletal: , + upper back tenderness Skin: + Perineal rash Neurological: Negative for headaches, weakness or numbness. 10 point ROS negative except as marked above and in HPI. Physical Exam - Vital signs Vitals: Pulse Resp BP Pulse Ox 83 18 175/78 H 95 01/17/20 12:19 01/17/20 12:19 01/17/20 12:19 01/17/20 12:19 - Notes Notes: PHYSICAL EXAMINATION: Physical Exam: General: Frail elderly female in no acute distress. HEENT: NC/AT, pupils equal round and reactive to light, MM moist,nares clear, oropharynx clear, airway patent Neck: C-collar in place. Exam post removal of c-collar: Good range of motion, tenderness in the posterior cervical region, no crepitus, no step-off. Lungs: clear, no wheezing, no rales no rhonchi CVS: Regular rate and rhythm no murmur gallop or rub Abdomen: Soft, active, nontender, no masses, no hepatosplenomegaly Ext: No edema, clubbing or cyanosis. Neuro: Alert and responsive, moving all 4 extremities on command, cranial nerves intact, no focal findings Skin: Left upper lip abrasion, left lower lip abrasion, no obvious laceration, no suturable lesion. PSYCH: Normal mood, normal affect. Course - Re-evaluation Re-evalutation: 01/17/20 14:12 Had a series of x-rays T-spine, L-spine, CT head and CT facial along with CT cervical spine no fracture or dislocation was seen, the patient does have degenerative changes in the C and T-spine. 01/17/20 14:13 She has complaint of a rash in the groin area which she has noted over the past week. Itchy and red. Patient is given a prescription for Diflucan 2 tablets. - Vital Signs Vital signs: Temp Pulse Resp BP Pulse Ox 83 18 175/78 H 95 01/17/20 12:19 01/17/20 12:19 01/17/20 12:19 01/17/20 12:19 Discharge - Discharge Clinical Impression: Abrasion of lip, initial encounter, Rash of perineum Contusion of upper back Qualifiers: Encounter type: initial encounter Laterality: unspecified laterality Qualified Code(s): S20.229A - Contusion of unspecified back wall of thorax, initial encounter Cervical strain Qualifiers: Encounter type: initial encounter Qualified Code(s): S16.1XXA - Strain of muscle, fascia and tendon at neck level, initial encounter Fall Qualifiers: Encounter type: initial encounter Qualified Code(s): W19.XXXA - Unspecified fall, initial encounter Condition: Good Disposition: HOME, SELF-CARE Instructions: Neck Injury (Cervical Strain) ([facility]), Abrasions ([facility]), Contusion ([facility]) Additional Instructions: You were seen in the emergency department today with injuries sustained from a fall. The CT scans and x-rays were negative for fractures. You are given a prescription for a rash and please take the medication as prescribed. Please follow-up with your doctor as needed. HOME CARE INSTRUCTIONS & INFORMATION: Thank you for choosing us for your medical needs. We hope you're satisfied with the care you received. After you leave, you must properly care for your problem and, at the same time, observe its progress. Any condition can change. Some illnesses can change rapidly over hours or days. If your condition worsens, return to the Emergency Department or see your physician promptly. ABOUT YOUR X-RAYS AND EKG'S: If you had an EKG or X-rays taken, they have been read by the Emergency Physician. The X-rays and EKG's will also be read by a Radiologist or Licensed Optical Dispenser within 24 hours. If discrepancies are noted, you will be notified by telephone. Please be certain the ED has a correct telephone number & address where you can be reached. Also, realize that some fractures or abnormalities do not show up on initial X-rays. If your symptoms continue, see your physician. ABOUT YOUR LABORATORY TEST: If you had laboratory tests, the results have been reviewed by the Emergency Physician. Some test results (for example cultures) may not be available for several days. You will be contacted if any test result shows you need additional treatment. Please be certain the ED has a correct telephone number and address where you can be reached. ABOUT YOUR MEDICATIONS: You will receive instructions on how to take your medicine on the prescription label you receive. Additional information may be provided by the Pharmacy. If you have questions afterwards, call the ED for clarification or further instructions. Some prescribed medications may cause drowsiness. Do not perform tasks such as driving a car or operating machinery without consulting your Pharmacist. If you feel you need a refill of pain medication, your condition will need re-evaluation. Please do not call for a refill of any medication. ABOUT YOUR SIGNATURE: Signature of this document acknowledges to followin. Understanding that you received emergency treatment and that you may be released before al medical problems are known or treated. Please be certain th e ED has a correct phone number & address where you can be reached. 2. Acknowledgement that you will arrange for follow-up care as recommended. 3. Authorization for the Emergency Physician to provide information to your follow-up Physician in order to maximize your care. AT ANY TIME, IF YOUR SYMPTOMS CHANGE SIGNIFICANTLY OR WORSEN OR YOU DEVELOP NEW SYMPTOMS, RETURN TO THE EMERGENCY DEPARTMENT IMMEDIATELY FOR RE-EVALUATION. OUR GOAL IS TO PROVIDE EXCELLENT MEDICAL CARE! WE HOPE THAT WE HAVE MET YOUR EXPECTATIONS DURING YOUR EMERGENCY DEPARTMENT VISIT AND THAT YOU FEEL YOU HAVE RECEIVED EXCELLENT CARE! Prescriptions: Fluconazole [Diflucan] 150 mg PO NOW #2 tablet Referrals: ARNOLD BAILEY MD [Primary Care Provider] - Follow up as needed
--- NOTE | 2020-01-17 13:37 | RADIOLOGY REPORT (SQ) ---
EXAM DESCRIPTION: T SPINE AP/LAT IMAGES COMPLETED DATE/TIME: 01/17/2020 12:54 pm REASON FOR STUDY: Fall with injury to head face neck and back COMPARISON: Thoracic spine two views 01/26/2014 NUMBER OF VIEWS: Two views. TECHNIQUE: AP and lateral radiographic images acquired of the thoracic spine. LIMITATIONS: None. FINDINGS: MINERALIZATION: Normal. ALIGNMENT: Convex leftward lower thoracic/upper lumbar curvature due to asymmetric right-sided disc s pace loss of height at T11-12. This is progressive since 2013. VERTEBRAE: No fracture or bone lesion. Maintained height, normal segmentation. DISCS: High-grade right-sided T11-12 disc space loss of height. Bulky bony spurring. HARDWARE: None in the spine. MEDIASTINUM AND SOFT TISSUES: Normal heart size and aortic contour. No soft tissue abnormality. VISUALIZED LUNG SHRESTHA: Clear. OTHER: No other significant finding. IMPRESSION: No acute thoracic compression deformity by plain film. Advanced degenerative disc changes T11-12 TECHNICAL DOCUMENTATION: JOB ID: [id number] 2010 [employer]- All Rights Reserved Reading location - IP/workstation name: [id number]
--- NOTE | 2020-01-17 13:39 | RADIOLOGY REPORT (SQ) ---
EXAM DESCRIPTION: L SPINE WHOLE IMAGES COMPLETED DATE/TIME: 01/17/2020 12:54 pm REASON FOR STUDY: Fall with injury to head face neck and back COMPARISON: Thoracic spine films same date NUMBER OF VIEWS: Five views including obliques. TECHNIQUE: AP, lateral, oblique, and sacral radiographic images acquired of the lumbar spine. LIMITATIONS: None. FINDINGS: MINERALIZATION: Osteopenic SEGMENTATION: Normal. No transitional anatomy. ALIGNMENT: Convex leftward thoracolumbar junction curvature. VERTEBRAE: No gross acute lumbar compression deformity by plain film DISCS: High-grade disc space loss of height at L4-5 and L5-S1 POSTERIOR ELEMENTS: Diffuse lumbar facet arthropathy. HARDWARE: None in the spine. PARASPINAL SOFT TISSUES: Normal. PELVIS: SI joints intact OTHER: No other significant finding. IMPRESSION: No gross acute lumbar compression deformity by plain film. Diffuse lumbar facet arthropathy TECHNICAL DOCUMENTATION: JOB ID: [id number] 2010 [employer]- All Rights Reserved Reading location - IP/workstation name: [id number]
--- NOTE | 2020-01-17 13:47 | RADIOLOGY REPORT (SQ) ---
EXAM DESCRIPTION: CT HEAD WITHOUT IMAGES COMPLETED DATE/TIME: 01/17/2020 1:13 pm REASON FOR STUDY: Fall with injury to head face neck and back COMPARISON: CT brain 08/10/2019, 11/13/2019 TECHNIQUE: Axial images acquired through the brain without intravenous contrast. Images reviewed wi th bone, brain and subdural windows. Additional sagittal and coronal reconstructions were generated. Images stored on PACS. All CT scanners at this facility use dose modulation, iterative reconstruction, and/or weight based d osing when appropriate to reduce radiation dose to as low as reasonably achievable (ALARA). [facility]: Dose Right [facility]: CareDose [facility]: Dose Right [facility]: Teradose 4D [facility]: [employer] RADIATION DOSE: CT Rad equipment meets quality standard of care and radiation dose reduction techniq ues were employed. CTDIvol: 53.2 mGy. DLP: 1044 mGy-cm. mGy. LIMITATIONS: None. FINDINGS: VENTRICLES: Normal size and contour. CEREBRUM: No masses. No hemorrhage. No midline shift. No evidence for acute infarction. Minimal ag e-appropriate chronic white matter disease in the hemispheric white matter. CEREBELLUM: No masses. No hemorrhage. No alteration of density. No evidence for acute infarction. EXTRAAXIAL SPACES: No fluid collections. No masses. ORBITS AND GLOBE: No intra- or extraconal masses. Post bilateral cataract surgery CALVARIUM: No fracture. PARANASAL SINUSES: No fluid or mucosal thickening. SOFT TISSUES: No mass or hematoma. OTHER: Old left nasal bone fracture IMPRESSION: No acute findings EVIDENCE OF ACUTE STROKE: NO. COMMENT: Quality ID # [id number]: Final reports with documentation of one or more dose reduction techniques (e.g., Automated exposure control, adjustment of the mA and/or kV according to patient size, use of iterative reconstruction technique) TECHNICAL DOCUMENTATION: JOB ID: [id number] 2010 [employer]- All Rights Reserved Reading location - IP/workstation name: [id number]
--- NOTE | 2020-01-17 13:49 | RADIOLOGY REPORT (SQ) ---
EXAM DESCRIPTION: CT CERVICAL SPINE WITHOUT IMAGES COMPLETED DATE/TIME: 01/17/2020 1:13 pm REASON FOR STUDY: Fall with injury to head face neck and back COMPARISON: CT brain same date TECHNIQUE: Axial images acquired through the cervical spine without intravenous contrast. Images re viewed with lung, soft tissue and bone windows. Reconstructed coronal and sagittal MPR images review ed. Images stored on PACS. All CT scanners at this facility use dose modulation, iterative reconstruction, and/or weight based d osing when appropriate to reduce radiation dose to as low as reasonably achievable (ALARA). [facility]: Dose Right [facility]: CareDose [facility]: Dose Right [facility]: Teradose 4D [facility]: [employer] RADIATION DOSE: CT Rad equipment meets quality standard of care and radiation dose reduction techniq ues were employed. CTDIvol: 12.2 mGy. DLP: 238 mGy-cm. mGy. LIMITATIONS: None. FINDINGS: ALIGNMENT: Anatomic. MINERALIZATION: Normal. VERTEBRAL BODIES: No fractures or dislocation. DISCS: Multilevel disc space narrowing with osteophytes. FACETS, LATERAL MASSES, POSTERIOR ELEMENTS: Facet arthropathy. No fractures. No dislocation. No ac [place] findings. HARDWARE: None in the spine. VISUALIZED RIBS: No fractures. LUNG APICES AND SOFT TISSUES: No significant or acute findings. OTHER: No other significant finding. IMPRESSION: CHRONIC DEGENERATIVE CHANGES. NO ACUTE FINDINGS. TECHNICAL DOCUMENTATION: JOB ID: [id number] Quality ID # [id number]: Final reports with documentation of one or more dose reduction techniques (e.g., Au tomated exposure control, adjustment of the mA and/or kV according to patient size, use of iterative reconstruction technique) 2010 [employer]- All Rights Reserved Reading location - IP/workstation name: [id number]
--- NOTE | 2020-01-17 13:51 | RADIOLOGY REPORT (SQ) ---
EXAM DESCRIPTION: CT FACIAL AREA WITHOUT IMAGES COMPLETED DATE/TIME: 01/17/2020 1:13 pm REASON FOR STUDY: Fall with injury to head face neck and back COMPARISON: CT brain 06/05/2017, 08/10/2019, 11/13/2019, today TECHNIQUE: Noncontrasted images through the facial bones and orbits windowed for bone and soft tissu e. Additional coronal and sagittal reconstructed images reviewed. All images stored on PACS. All CT scanners at this facility use dose modulation, iterative reconstruction, and/or weight based d osing when appropriate to reduce radiation dose to as low as reasonably achievable (ALARA). [facility]: Dose Right [facility]: CareDose [facility]: Dose Right [facility]: Teradose 4D [facility]: [employer] RADIATION DOSE: CT Rad equipment meets quality standard of care and radiation dose reduction techniq ues were employed. CTDIvol: 30.4 mGy. DLP: 591 mGy-cm. mGy. LIMITATIONS: None. FINDINGS: FACIAL BONES: Old left nasal bone fracture. No acute facial fracture. ORBITS: Intact. No fracture. Symmetric intact globes and retroorbital soft tissues. Post bilateral cataract surgery PARANASAL SINUSES: Clear. No significant mucosal thickening, mass or fluid. No nasal polyps. Maxill jeaneth sinus outlets are patent. SOFT TISSUES: No mass or edema. INFERIOR BRAIN: Limited view. No acute findings. OTHER: No other significant finding. IMPRESSION: NO ACUTE FINDINGS. TECHNICAL DOCUMENTATION: JOB ID: [id number] Quality ID # [id number]: Final reports with documentation of one or more dose reduction techniques (e.g., Au tomated exposure control, adjustment of the mA and/or kV according to patient size, use of iterative reconstruction technique) 2010 [employer]- All Rights Reserved Reading location - IP/workstation name: [id number]
[2020-01-17 15:29] VITALS: BP 170/80
== END 2020-01-17 15:28 | disposition home or self-care (01) ==
LOC: ER 12:09
DX: S00.511A Abrasion of lip, initial encounter (principal); S16.1XXA Strain of muscle, fascia and tendon at neck level, initial encounter; S20.229A Contusion of unspecified back wall of thorax, initial encounter; S50.311A Abrasion of right elbow, initial encounter; M54.6 Pain in thoracic spine; R51.9 Headache, unspecified; W18.30XA Fall on same level, unspecified, initial encounter; R21 Rash and other nonspecific skin eruption; I25.10 Atherosclerotic heart disease of native coronary artery without angina pectoris; E78.00 Pure hypercholesterolemia, unspecified; I10 Essential (primary) hypertension
CPT/HCPCS: 99285; 72110; 72070; 70450; 70486; 72125; A9270

== ENCOUNTER → 2020-03-16 | Outpatient (CLI) | payer MEDICARE, OTHER ==
[2020-03-16 11:38] LABS: ALBUMIN 4.6 g/dL (3.5-5.0); ALKALINE PHOSPHATASE 59 U/L (38-126); ANION GAP 7 (5-19); ASPARTATE AMINO TRANSFERASE 35 U/L (14-36); BILIRUBIN,DIRECT 0.2 mg/dL (0.0-0.4); BILIRUBIN,TOTAL 0.6 mg/dL (0.2-1.3); BLOOD UREA NITROGEN 16 mg/dL (7-20); CALCIUM 9.7 mg/dL (8.4-10.2); CARBON DIOXIDE 29 mmol/L (22-30); CHLORIDE 103 mmol/L (98-107); CHOLESTEROL 132.63 mg/dL (0-200); GLUCOSE 103 mg/dL (75-110); POTASSIUM 4.4 mmol/L (3.6-5.0); TOTAL PROTEIN 7.7 g/dL (6.3-8.2); TRIGLYCERIDES 128 mg/dL (<150)
[2020-03-16 11:49] LABS: DIRECT LDL 48 mg/dL (<100)
== END ==
LOC: OD 09:36
PROVIDERS: ATTEND Physician Assistant
DX: E78.00 Pure hypercholesterolemia, unspecified (principal); I10 Essential (primary) hypertension; Z79.899 Other long term (current) drug therapy
CPT/HCPCS: 36415; 80048; 80061; 80076